=== PATIENT | female | born 1935 | race Caucasian/White ===

== ENCOUNTER 2017-03-10 01:32 | Emergency (ER) | payer MEDICARE, OTHER ==
--- NOTE | 2017-03-10 02:09 | EDM.PDOC ---
<Jeremy Remy - Last Filed: 03/10/17 07:17> ED HPI GENERAL MEDICAL PROBLEM - General Chief Complaint: Abdominal Pain Stated Complaint: VOMITING ABDOMINAL PAIN Time Seen by Provider: 03/10/17 02:00 - History of Present Illness INITIAL COMMENTS - FREE TEXT/NARRATIVE: 82-year-old female presents emergency room this morning with abdominal pain. This started around 9:00 this evening she developed some epigastric discomfort vomited one time and shortly before arrival this morning vomited again. Patient is concerned about ulcers as she's had quite a bit of stress lately. Couple weeks ago she had pain in the same area however this resolved on its own without treatment. She cannot recall any specific triggers. She feels a little bloated with this as well. Past medical history is significant for prior stroke she is treated for hypertension hyperlipidemia Abdomen Pain Score (Numeric/FACES): 6 - Related Data Allergies Allergy/AdvReac Type Severity Reaction Status Date / Time No Known Allergies Allergy Verified 09/22/14 11:45 Home Meds: Home Meds Ascorbic Acid [Vitamin C] 1,000 mg PO DAILY 03/10/17 [History] Aspirin [Ecotrin] 81 mg PO DAILY 03/10/17 [History] Bee Pollen 1,100 mg PO DAILY 03/10/17 [History] Bilberry 100 mg PO DAILY 03/10/17 [History] Biotin 2,000 mcg PO DAILY 03/10/17 [History] Calcium Carbonate/Vitamin D3 [Calcium Carb 500 MG] 1 tab PO DAILY 03/10/17 [ History] Cholecalciferol (Vitamin D3) [Vitamin D3] 2,000 mg PO DAILY 03/10/17 [History] Cinnamon Bark [Cinnamon] 1,000 mg PO DAILY 03/10/17 [History] Tiffany Fleetwood/Linoleic/Gamoleni [Evening Fleetwood 1,000 mg Sftg] 1,000 mg PO DAILY 03/10/17 [History] Folic Acid 1 mg PO DAILY 03/10/17 [History] Garlic 2,000 mg PO DAILY 03/10/17 [History] Gluc HCl/Csa/Sheryl Hy/Hyalur Ac [Glucosamine Chondroitin] 1 tab PO DAILY [History] Lisinopril 5 mg PO DAILY 03/10/17 [History] Multivitamin [Multivitamins] 1 tab PO DAILY 03/10/17 [History] Kingman-3 Fatty Acids [Kingman-3] 100 mg PO DAILY 03/10/17 [History] Pantoprazole Sodium [Protonix] 40 mg PO Q24H #30 tablet. 03/10/17 [Rx] Head Waters Jelly 300 mg PO DAILY 03/10/17 [History] Triamterene/Hydrochlorothiazid [Triamterene-HCTZ 37.5-25 MG] 1 cap PO DAILY 01/20 [History] Turmeric Root Extract [Turmeric] 500 mg PO DAILY 03/10/17 [History] Ubidecarenone [Co Q-10] 200 mg PO DAILY 03/10/17 [History] Vit A/Vit C/Vit E/Selenium Yst [Antioxidant Formula Tablet] 1 tab PO DAILY 03/10 [History] Vitamin B Complex [B Complex] 1 tab PO DAILY 03/10/17 [History] Vitamin E 400 unit PO DAILY 03/10/17 [History] atorvaSTATin [Lipitor] 20 mg PO DAILY 03/10/17 [History] Past Medical History HEENT History: Reports: Impaired Vision Cardiovascular History: Reports: High Cholesterol, Hypertension Musculoskeletal History: Reports: Back Pain, Chronic, Fracture, Neck Pain, Chronic Other Musculoskeletal History: foot Neurological History: Reports: CVA Social & Family History - Family History Family Medical History: Noncontributory - Tobacco Use Smoking Status *Q: Never Smoker - Caffeine Use Caffeine Use: Reports: Coffee - Recreational Drug Use Recreational Drug Use: No ED ROS GENERAL - Review of Systems Review Of Systems: See Below Constitutional: Reports: No Symptoms HEENT: Reports: No Symptoms Respiratory: Reports: No Symptoms Cardiovascular: Reports: No Symptoms GI/Abdominal: Reports: Abdominal Pain, Nausea, Vomiting. Denies: Black Stool, Bloody Stool, Constipation, Diarrhea : Reports: No Symptoms Neurological: Reports: No Symptoms ED EXAM, GI/ABD - Physical Exam Exam: See Below Exam Limited By: No Limitations General Appearance: Alert, No Apparent Distress Head: Atraumatic, Normocephalic Neck: Normal Inspection, Supple, Non-Tender, Full Range of Motion. No: Lymphadenopathy (L), Lymphadenopathy (R) Respiratory/Chest: No Respiratory Distress, Lungs Clear, Normal Breath Sounds Cardiovascular: Regular Rate, Rhythm, No Edema, No Murmur GI/Abdominal: Normal Bowel Sounds, Soft, Tenderness (Patient has significant epigastric discomfort to lesser degree she has some right and left upper quadrant discomfort no lower quadrant discomfort no rebound or guarding noted no rigidity) Back Exam: Normal Inspection. No: CVA Tenderness (L), CVA Tenderness (R) Extremities: Normal Inspection, No Pedal Edema Neurological: Alert, Oriented, Normal Cognition Course - Vital Signs Last Recorded V/S: Last Vital Signs Temp 97.1 F 03/10/17 01:37 Pulse 64 03/10/17 07:47 Resp 18 03/10/17 07:47 BP 170/74 H 03/10/17 07:47 Pulse Ox 94 L 03/10/17 07:47 - Orders/Labs/Meds Orders: Active Orders 24 hr Category Date Time Status Lactated Ringers [Ringers, Lactated] 1,000 ml Med 03/10/17 02:15 Active IV ASDIRECTED Sodium Chloride 0.9% [Normal Saline] 1,000 ml Med 03/10/17 11:00 Active IV ASDIRECTED Sodium Chloride 0.9% [Saline Flush] Med 03/10/17 08:16 Active 10 ml FLUSH ONETIME PRN Medication Orders Lactated Ringer's (Ringers, Lactated) 1,000 mls @ 125 mls/hr IV ASDIRECTED LAURENCE Last Admin: 03/10/17 02:19 Dose: 125 mls/hr Sodium Chloride (Normal Saline) 1,000 mls @ 150 mls/hr IV ASDIRECTED LAURENCE Last Admin: 03/10/17 11:07 Dose: 150 mls/hr Sodium Chloride (Saline Flush) 10 ml FLUSH ONETIME PRN PRN Reason: IV FLUSH Last Admin: 03/10/17 09:24 Dose: 10 ml Labs: Laboratory Tests 03/10/17 03/10/17 03/10/17 Range/Units 01:52 01:52 01:52 WBC 6.78 (3.98-10.04) K/mm3 RBC 4.77 (3.98-5.22) M/mm3 Hgb 14.2 (11.2-15.7) gm/L Hct 40.8 (34.1-44.9) % MCV 85.5 (79.4-94.8) fl MCH 29.8 (25.6-32.2) pg MCHC 34.8 (32.2-35.5) g/dl RDW Std Deviation 42.4 (36.4-46.3) fL Plt Count 212 (182-369) K/mm3 MPV 9.7 (9.4-12.3) fl Neutrophils % (Manual) 65 H (40-60) % Band Neutrophils % 0 (0-10) % Lymphocytes % (Manual) 32 (20-40) % Atypical Lymphs % 0 % Monocytes % (Manual) 3 (2-10) % Eosinophils % (Manual) 0 L (0.7-5.8) % Basophils % (Manual) 0 L (0.1-1.2) Platelet Estimate Adequate Plt Morphology Comment Normal RBC Morph Comment Normal Sodium 137 (136-145) mEq/L Potassium 3.6 (3.5-5.1) mEq/L Chloride 102 (98-107) mEq/L Carbon Dioxide 23 (21-32) mEq/L Anion Gap 15.6 H (5-15) BUN 16 (7-18) mg/dL Creatinine 1.0 (0.55-1.02) mg/dL Est Cr Clr Drug Dosing 36.16 mL/min Estimated GFR (MDRD) 53 (>60) mL/min BUN/Creatinine Ratio 16.0 (14-18) Glucose 149 H (83-115) mg/dL Calcium 9.5 (8.5-10.1) mg/dL Total Bilirubin 1.7 H (0.2-1.0) mg/dL Direct Bilirubin (0.0-0.2) mg/dl GGT 831 H (5-55) U/L AST 82 H (15-37) U/L ALT 158 H (14-59) U/L Alkaline Phosphatase 345 H (46-116) U/L Total Protein 7.1 (6.4-8.2) g/dl Albumin 4.1 (3.4-5.0) g/dl Globulin 3.0 gm/dL Albumin/Globulin Ratio 1.4 (1-2) Lipase 241 (73-393) U/L Urine Color (Yellow) Urine Appearance (Clear) Urine pH (5.0-8.0) Ur Specific Chester (1.005-1.030) Urine Protein (Negative) Urine Glucose (UA) (Negative) Urine Ketones (Negative) Urine Occult Blood (Negative) Urine Nitrite (Negative) Urine Bilirubin (Negative) Urine Urobilinogen (0.2-1.0) Ur Leukocyte Esterase (Negative) Urine RBC (0-5) /hpf Urine WBC (0-5) /hpf Ur Epithelial Cells (0-5) /hpf Urine Bacteria (FEW) /hpf Urine Mucus (FEW) /hpf 03/10/17 03/10/17 Range/Units 01:53 03:22 WBC (3.98-10.04) K/mm3 RBC (3.98-5.22) M/mm3 Hgb (11.2-15.7) gm/L Hct (34.1-44.9) % MCV (79.4-94.8) fl MCH (25.6-32.2) pg MCHC (32.2-35.5) g/dl RDW Std Deviation (36.4-46.3) fL Plt Count (182-369) K/mm3 MPV (9.4-12.3) fl Neutrophils % (Manual) (40-60) % Band Neutrophils % (0-10) % Lymphocytes % (Manual) (20-40) % Atypical Lymphs % % Monocytes % (Manual) (2-10) % Eosinophils % (Manual) (0.7-5.8) % Basophils % (Manual) (0.1-1.2) Platelet Estimate Plt Morphology Comment RBC Morph Comment Sodium (136-145) mEq/L Potassium (3.5-5.1) mEq/L Chloride (98-107) mEq/L Carbon Dioxide (21-32) mEq/L Anion Gap (5-15) BUN (7-18) mg/dL Creatinine (0.55-1.02) mg/dL Est Cr Clr Drug Dosing mL/min Estimated GFR (MDRD) (>60) mL/min BUN/Creatinine Ratio (14-18) Glucose (83-115) mg/dL Calcium (8.5-10.1) mg/dL Total Bilirubin (0.2-1.0) mg/dL Direct Bilirubin 1.00 H (0.0-0.2) mg/dl GGT (5-55) U/L AST (15-37) U/L ALT (14-59) U/L Alkaline Phosphatase (46-116) U/L Total Protein (6.4-8.2) g/dl Albumin (3.4-5.0) g/dl Globulin gm/dL Albumin/Globulin Ratio (1-2) Lipase (73-393) U/L Urine Color Yellow (Yellow) Urine Appearance Clear (Clear) Urine pH 7.5 (5.0-8.0) Ur Specific Chester 1.020 (1.005-1.030) Urine Protein Trace H (Negative) Urine Glucose (UA) Negative (Negative) Urine Ketones 1+ H (Negative) Urine Occult Blood Negative (Negative) Urine Nitrite Negative (Negative) Urine Bilirubin Negative (Negative) Urine Urobilinogen 2.0 H (0.2-1.0) Ur Leukocyte Esterase Trace H (Negative) Urine RBC 0-5 (0-5) /hpf Urine WBC 0-5 (0-5) /hpf Ur Epithelial Cells 0-5 (0-5) /hpf Urine Bacteria Few (FEW) /hpf Urine Mucus Not seen (FEW) /hpf Meds: Medications Generic Name Dose Route Start Last Admin Trade Name Darryl PRN Reason Stop Dose Admin Lactated Ringer's 1,000 mls @ 125 mls/hr 03/10/17 02:15 03/10/17 02:19 Ringers, Lactated IV 125 mls/hr ASDIRECTED LAURENCE Administration Sodium Chloride 1,000 mls @ 150 mls/hr 03/10/17 11:00 03/10/17 11:07 Normal Saline IV 150 mls/hr ASDIRECTED LAURENCE Administration Sodium Chloride 10 ml 03/10/17 08:16 03/10/17 09:24 Saline Flush FLUSH 10 ml ONETIME PRN Administration IV FLUSH Discontinued Medications Generic Name Dose Route Start Last Admin Trade Name Darryl PRN Reason Stop Dose Admin Al Hydroxide/Mg Hydroxide 30 0 ml 03/10/17 02:10 03/10/17 02:43 ml/ Lidocaine HCl 15 ml PO 03/10/17 02:11 45 ml ONETIME ONE Administration Diatrizoate Meglum/Diatrizoate Sod 120 ml 03/10/17 08:16 03/10/17 09:23 Gastrografin 37% PO 03/10/17 08:17 45 ml ONETIME ONE Administration Hydromorphone HCl 0.5 mg 03/10/17 05:26 03/10/17 05:38 Dilaudid IVPUSH 03/10/17 05:27 0.5 mg ONETIME ONE Administration Hydromorphone HCl 0.25 mg 03/10/17 10:48 03/10/17 11:07 Dilaudid IVPUSH 03/10/17 10:49 0.25 mg ONETIME ONE Administration Iopamidol 100 ml 03/10/17 08:16 03/10/17 09:24 Isovue-300 (61%) IVPUSH 03/10/17 08:17 100 ml ONETIME ONE Administration Ondansetron HCl 4 mg 03/10/17 02:10 03/10/17 02:15 Zofran IVPUSH 03/10/17 02:11 4 mg ONETIME ONE Administration Ondansetron HCl 4 mg 03/10/17 07:40 03/10/17 07:45 Zofran IVPUSH 03/10/17 07:41 4 mg ONETIME ONE Administration Pantoprazole Sodium 40 mg 03/10/17 05:26 03/10/17 05:40 Protonix Iv IVPUSH 03/10/17 05:27 40 mg ONETIME ONE Administration Sucralfate 1 gm 03/10/17 03:37 03/10/17 03:40 Carafate PO 03/10/17 03:38 1 gm ONETIME ONE Administration - Re-Assessments/Exams Free Text/Narrative Re-Assessment/Exam: 03/10/17 03:45 Patient received Zofran this helped significantly with her nausea and vomiting this was followed up with GI cocktail with some improvement not great we'll try Carafate. 03/10/17 05:15 Direct bilirubins elevated at 1.0 GGT is elevated as well patient will get a gallbladder ultrasound this morning. 03/10/17 07:22 Ultrasound-guided results back. She's got some intrahepatic and extrahepatic biliary ductal dilation with sludge within the gallbladder no gallstones appreciated no gallbladder wall thickening she may have some underlying fatty liver the duct. Pancreas cannot be well visualized because of its excessive bowel gas her common duct is dilated at 1.4 cm etiology of this cannot be identified. Case discussed with Dr. Jones who recommends CT scanning. Discussed the situation with the patient and her will give her a little more Dilaudid. She received 0.25 mg initially and now her pain is coming back she will receive another 0.25 mg. At this point it is change of shift case discussed with Dr. Villa further evaluation and disposition per Dr. Villa. Departure - Departure Disposition: Home, Self-Care 01 Clinical Impression: Upper abdominal pain, Biliary obstruction Pancreatic cancer Qualifiers: Pancreatic malignancy location: unspecified Qualified Code(s): C25.9 - Malignant neoplasm of pancreas, unspecified - Discharge Information Prescriptions: Pantoprazole Sodium [Protonix] 40 mg PO Q24H #30 tablet. Referrals: Samara Ga MD [Primary Care Provider] - Forms: ED Department Discharge - My Orders Last 24 Hours: My Active Orders 03/10/17 08:16 Sodium Chloride 0.9% [Saline Flush] 10 ml FLUSH ONETIME PRN 03/10/17 11:00 Sodium Chloride 0.9% [Normal Saline] 1,000 ml IV ASDIRECTED - Assessment/Plan Last 24 Hours: My Active Orders 03/10/17 08:16 Sodium Chloride 0.9% [Saline Flush] 10 ml FLUSH ONETIME PRN 03/10/17 11:00 Sodium Chloride 0.9% [Normal Saline] 1,000 ml IV ASDIRECTED <[place] - Last Filed: 03/10/17 11:32> Course - Re-Assessments/Exams Free Text/Narrative Re-Assessment/Exam: 03/10/17 11:10. Have accepted care from Dr. Remy at change of shift. I agree with his history and exam as documented. At that time he did discuss patient's symptoms and findings with Dr. Jaime Jones, general surgeon adult education teacher. Ultrasound of gallbladder did show sludge. Her liver enzymes were elevated and bilirubin at 1.7. Dr. Jia Jones did recommend doing abdominal CT. Oral contrast was given and then CT subsequently obtained. Radiology report is back that unfortunately shows a pancreatic tumor 1.[address] has been reviewed with Dr. Jia Jones, our General Surgeon adult education teacher. There is biliary obstruction and also some pancreatic duct obstruction. Therefore we are transferring her to [facility] for ERCP, consider brushings for diagnostic purposes and stent placement for symptomatic relief. I have discussed this with Dr. Zapata [facility] who does feel this is reasonable and also information has been relayed to Dr. Pinon, Hospitalist adult education teacher who does accept patient in transfer. She was doing better after IV Dilaudid but now the pain is coming back. Further pain medication will be given. She will be transferred by ground ambulance. 03/10/17 11:31 Departure - Departure Time of Disposition: 11:15
[2017-03-10] MEDS ORDERED: Ondansetron 4 MG/2 ML SDV IVPUSH ONE ×2 (02:10→07:40)
[2017-03-10] MEDS ORDERED: Alum Hydrox/Mag Hydrox/Simeth 30 ML, Lidocaine 2% 15 ML PO ONE ×2 (02:10)
[2017-03-10] MEDS ORDERED: Lactated Ringers 1,000 ML IV SCH (02:15)
[2017-03-10] MEDS ORDERED: Sucralfate Suspension 1 GM/10 ML Cup PO ONE (03:37)
[2017-03-10] MEDS ORDERED: Pantoprazole 40 MG Vial IVPUSH ONE (05:26)
[2017-03-10] MEDS ORDERED: HYDROmorphone 0.5 MG/0.5 ML Syringe IVPUSH ONE ×2 (05:26→10:48)
--- NOTE | 2017-03-10 07:02 | US ---
Limited abdominal ultrasound: Multiple real-time images were obtained of the upper right abdomen. Comparison: No previous ultrasound exam. Technologist's note: Somewhat limited due to midline gas Liver is somewhat coarse in its echo pattern. No focal abnormality is appreciated within the liver. Mild intrahepatic biliary duct dilatation is seen. Gallbladder shows mild amount of sludge. No gallbladder wall thickening is seen. Common bile duct mildly dilated at 1.4 cm. Etiology is not seen for this biliary duct dilatation on this exam. Right kidney shows no hydronephrosis or mass and has a length of 10.2 cm. Pancreas is obscured from bowel gas. Impression: 1. Intrahepatic and extrahepatic biliary duct dilatation. 2. Sludge within the gallbladder. No gallstones are appreciated. No gallbladder wall thickening is seen. If patient is a candidate, MRCP could be obtained to further evaluate the biliary duct dilatation. 3. Probable fatty infiltration of the liver. 4. Obscured pancreas due to bowel gas. Diagnostic code #3
--- NOTE | 2017-03-10 08:02 | CR ---
Abdomen: Supine and upright views of the abdomen were obtained. Comparison: No previous study. Gas noted throughout colon and small bowel. No bowel dilatation is seen. No free air is identified. Calcifications noted within the pelvis are compatible with phleboliths. Minimal degenerative change noted within the spine. Impression: 1. Mild increased gas within colon and small bowel with no bowel dilatation. Findings could represent increased swallowed gas versus ileus. 2. Other incidental findings. Diagnostic code #2
[2017-03-10] MEDS ORDERED: Sodium Chloride 0.9% 10 ML Syringe FLUSH PRN (08:16)
[2017-03-10] MEDS ORDERED: Diatrizoate Meglumine/Diatrizoate Sodium 37% 120 ML Bottle PO ONE (08:16)
[2017-03-10] MEDS ORDERED: Iopamidol 612 MG/ML 100 ML Bottle IVPUSH ONE (08:16)
--- NOTE | 2017-03-10 09:56 | CT ---
CT abdomen and pelvis Technique: Multiple axial sections were obtained from above the dome of the diaphragm inferiorly through the pubic symphysis. Intravenous and oral contrast was utilized. Comparison: Previous right upper quadrant abdominal ultrasound of 03/10/17. Findings: Gallbladder is somewhat dilated. There are small layering calcified gallstones within the gallbladder. These are not appreciated even in retrospect on prior ultrasound which presumably are hidden due from the sludge that was seen on ultrasound exam. Intrahepatic and extrahepatic biliary duct dilatation is seen. Small low-density lesion noted within the head of the pancreas measuring proximally 1.5 cm in size which could represent small pancreatic tumor. Slightly prominent main pancreatic duct is seen. No additional abnormality is appreciated within the pancreas. Adrenal glands show no nodule. Low-density tubular abnormality is seen off the superior left kidney extending inferiorly into the pelvis. This has a thickness of 3.5 cm and presumably represents a dilated upper pole collecting system with duplicated dilated ureter which which likely is dilated due to stenosis distally with other portions of this ureter showing no dilatation. Kidneys are otherwise unremarkable. Aorta shows atherosclerotic change without aneurysmal dilatation. No retroperitoneal adenopathy or mesenteric abnormalities are seen. No pelvic mass or adenopathy is seen. Increased stool is noted within the right colon. Bone window settings were reviewed which shows scattered degenerative change within the spine. Impression: 1. 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 Distal ureter not well seen which presumably represents stenosis within the distal aspect of the dilated portion of the ureter causing the proximal dilatation. Second ureter supplying the rest of the left kidney appears unremarkable. 2. Dilated gallbladder. Small calcified gallstones are seen within the gallbladder. These small gallstones are not seen even in retrospect on prior ultrasound presumably being hidden from sludge on prior study. Intrahepatic and extrahepatic biliary duct dilatation is seen. 3. Small low-density lesion within the head of the pancreas possibly due to small pancreatic tumor measuring 1.5 cm. Diagnostic code #9
[2017-03-10] MEDS ORDERED: Sodium Chloride 0.9% 1,000 ML IV SCH (11:00)
[2017-03-10 15:20] VITALS: BP 183/79
== END 2017-03-10 12:10 | disposition home or self-care (01) ==
LOC: JD.ED 01:32
DX: K83.1 Obstruction of bile duct (principal); C25.9 Malignant neoplasm of pancreas, unspecified; I10 Essential (primary) hypertension; E78.00 Pure hypercholesterolemia, unspecified; Z86.73 Personal history of transient ischemic attack (TIA), and cerebral infarction without residual deficits; Z79.899 Other long term (current) drug therapy; Z79.82 Long term (current) use of aspirin
CPT/HCPCS: 36415; 74020; 74177; 76705; 80053; 81001; 82248; 82977; 83690; 85025; 96361; 96374; 96375; 96376; 99285; A9270; C9113; J1170; J2405; J7040; J7050; J7120; Q9963; Q9967

== ENCOUNTER 2017-04-19 14:06 | Emergency (ER) | payer MEDICARE, OTHER ==
[2017-04-19] MEDS ORDERED: Sodium Chloride 0.9% 10 ML Syringe FLUSH PRN ×2 (15:18→15:51)
[2017-04-19] MEDS ORDERED: Diatrizoate Meglumine/Diatrizoate Sodium 37% 120 ML Bottle PO ONE (15:51)
[2017-04-19] MEDS ORDERED: Iopamidol 612 MG/ML 100 ML Bottle IVPUSH ONE (15:51)
--- NOTE | 2017-04-19 16:19 | CR ---
Chest: Portable view of the chest was obtained. Comparison: No prior chest x-ray. Heart size is slightly enlarged. Tortuous thoracic aorta is seen. Lungs are clear. Mild scoliosis is noted within the spine with degenerative spurring. Previous left shoulder surgery is seen. Impression: 1. Findings as described above. Nothing acute is identified. Diagnostic code #2
--- NOTE | 2017-04-19 17:00 | CT ---
CT abdomen and pelvis Technique: Multiple axial sections were obtained from above the dome of the diaphragm inferiorly through the pubic symphysis. Intravenous and oral contrast was utilized. Delayed images were obtained through the bladder. Comparison: Previous CT abdomen and pelvis exam of 03/10/17. Findings: Small portion of the visualized lung bases shows nothing acute. Small hiatal hernia is seen. Mild intrahepatic and extrahepatic biliary duct dilatation is seen. Intrahepatic air is also seen. No additional abnormality is appreciated within the liver. Spleen appears within normal limits. Stent is noted within the common bile duct extending into the duodenum. Pancreas is atrophic with mildly dilated pancreatic duct. Low-density mass is identified within the head of the pancreas measuring approximately 1.1 cm in size. When along for differences in measurement technique this is felt to be stable from previous exam. Adrenal glands show no nodule. Kidneys show symmetric contrast enhancement. 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 This finding is stable from previous exam. Lower pole left ureter shows no dilatation which is also stable from prior exam. Delayed images shows contrast excretion into the lower pole duplicated ureter as well as distal right ureter. Contrast is seen within the bladder. Aorta shows atherosclerotic change without aneurysmal dilatation. No retroperitoneal adenopathy or mesenteric abnormalities are seen. Appendix is felt to be present and appears normal in size. Diverticuli seen within the sigmoid colon. No pelvic mass or adenopathy is seen. No bowel dilatation is seen. Bone window settings were reviewed which shows scattered degenerative change within the spine. Impression: 1. 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 This appears stable from prior CT exam. Ureter supplying the rest of the left kidney shows no dilatation with contrast seen within the distal left ureter into the bladder. Contrast also noted within the distal right ureter into the bladder. 2. Stable low-density mass within the head of the pancreas. 3. Intrahepatic air is seen as well as intrahepatic and extrahepatic biliary duct dilatation. Stent is identified within the main common bile duct into the duodenum. 4. Other incidental findings as noted above. Diagnostic code #9
--- NOTE | 2017-04-19 18:26 | EDM.PDOC ---
ED HPI GENERAL MEDICAL PROBLEM - General Chief Complaint: Abdominal Pain Stated Complaint: ABD PAIN Time Seen by Provider: 04/19/17 15:35 Source of Information: Reports: Patient, Old Records (recent ER visit) History Limitations: Reports: No Limitations - History of Present Illness INITIAL COMMENTS - FREE TEXT/NARRATIVE: 82-year-old female presents for evaluation and treatment of right upper quadrant and epigastric abdominal pain. Patient reports that the abdominal pain came on last night. Describes the pain as a constant pain and rates it as a 5 or 6 out of 10. She reports associated symptoms of chills this morning, decreased appetite, bloating and fatigue. She states that she ate some corn on the cob and soup last night. She reports that she developed "gas pain". She states that she was belching more than normally. This morning she had some activia yogurt. She states that she continued to pass gas, belch and have abdominal pain. She reports that she had a small bowel movement this morning. She is currently reporting right upper quadrant/epigastric pain that radiates into the back. She did not take any medications prior to arrival in the ER. She denies any nausea, vomiting, fevers, chest pain, shortness of breath or diarrhea. Patient does report feeling pruritus in the scalp and back. Patient was seen in our ER and March. She was diagnosed with pancreatic cancer. She was sent [place] for further management and care. States that she had a stent placed to pancreatic duct in March [facility]. She has subsequently been seen oncology at [facility]. They did contact her oncologist today who instructed her to be seen in the ER. They're concerned for a clogged stent and for stent placement. Upper Abdominal Pain Score (Numeric/FACES): 7 - Related Data Allergies Allergy/AdvReac Type Severity Reaction Status Date / Time No Known Allergies Allergy Verified 04/19/17 14:57 Home Meds: Home Meds Ascorbic Acid [Vitamin C] 1,000 mg PO DAILY 03/10/17 [History] Aspirin [Ecotrin] 81 mg PO DAILY 03/10/17 [History] Bee Pollen 1,100 mg PO DAILY 03/10/17 [History] Bilberry 100 mg PO DAILY 03/10/17 [History] Biotin 2,000 mcg PO DAILY 03/10/17 [History] Calcium Carbonate/Vitamin D3 [Calcium Carb 500 MG] 1 tab PO DAILY 03/10/17 [ History] Cholecalciferol (Vitamin D3) [Vitamin D3] 2,000 mg PO DAILY 03/10/17 [History] Cinnamon Bark [Cinnamon] 1,000 mg PO DAILY 03/10/17 [History] Tiffany [place]/Linoleic/Gamoleni [Evening [place] 1,000 mg Sftg] 1,000 mg PO DAILY 03/10/17 [History] Folic Acid 1 mg PO DAILY 03/10/17 [History] Garlic 2,000 mg PO DAILY 03/10/17 [History] Gluc HCl/Csa/Sheryl Hy/Hyalur Ac [Glucosamine Chondroitin] 1 tab PO DAILY [History] Lisinopril 5 mg PO DAILY 03/10/17 [History] Multivitamin [Multivitamins] 1 tab PO DAILY 03/10/17 [History] Talpa-3 Fatty Acids [Talpa-3] 100 mg PO DAILY 03/10/17 [History] Pantoprazole Sodium [Protonix] 40 mg PO Q24H #30 tablet. 03/10/17 [Rx] [place] Jelly 300 mg PO DAILY 03/10/17 [History] Triamterene/Hydrochlorothiazid [Triamterene-HCTZ 37.5-25 MG] 1 cap PO DAILY 01/20 [History] Turmeric/Turmeric Root Extract [Turmeric] 500 mg PO DAILY 03/10/17 [History] Ubidecarenone [Co Q-10] 200 mg PO DAILY 03/10/17 [History] Vit A/Vit C/Vit E/Selenium Yst [Antioxidant Formula Tablet] 1 tab PO DAILY 03/10 [History] Vitamin B Complex [B Complex] 1 tab PO DAILY 03/10/17 [History] Vitamin E 400 unit PO DAILY 03/10/17 [History] atorvaSTATin [Lipitor] 20 mg PO DAILY 03/10/17 [History] Past Medical History HEENT History: Reports: Impaired Vision Cardiovascular History: Reports: High Cholesterol, Hypertension Musculoskeletal History: Reports: Back Pain, Chronic, Fracture, Neck Pain, Chronic Other Musculoskeletal History: foot Neurological History: Reports: CVA Oncologic (Cancer) History: Reports: Pancreatic Social & Family History - Family History Family Medical History: Noncontributory - Tobacco Use Smoking Status *Q: Never Smoker - Caffeine Use Caffeine Use: Reports: Coffee - Recreational Drug Use Recreational Drug Use: No ED ROS GENERAL - Review of Systems Review Of Systems: See Below Constitutional: Reports: Chills, Decreased Appetite. Denies: Fever Respiratory: Denies: Shortness of Breath Cardiovascular: Denies: Chest Pain GI/Abdominal: Reports: Abdominal Pain, Decreased Appetite Skin: Reports: Pruritis (scalp and back) ED EXAM, GI/ABD - Physical Exam Exam: See Below Exam Limited By: No Limitations General Appearance: Alert, WD/WN, Mild Distress Eyes: Bilateral: Normal Appearance (icterus) Throat/Mouth: Normal Inspection Respiratory/Chest: No Respiratory Distress, Lungs Clear, Normal Breath Sounds Cardiovascular: Normal Peripheral Pulses, Regular Rate, Rhythm, No Murmur GI/Abdominal Exam: Normal Bowel Sounds, Soft, Tender (RUQ and epigastric) Neurological: Alert, Oriented, Normal Cognition Psychiatric: Normal Affect, Normal Mood Skin Exam: Warm, Dry EKG INTERPRETATION EKG Date: 04/19/17 Time: 17:25 Rhythm: NSR Rate (Beats/Min): 74 [place]: Normal P-Wave: Present QRS: Normal ST-T: Normal QT: Normal EKG Interpretation Comments: NSR at 74 bpm. No acute changes. Reviewed by myself and Dr. Pitts. Course - Vital Signs Last Recorded V/S: Last Vital Signs Temp 37.1 C 04/19/17 18:48 Pulse 71 04/19/17 18:48 Resp 18 04/19/17 18:48 BP 135/67 04/19/17 18:48 Pulse Ox 96 04/19/17 18:48 - Orders/Labs/Meds Orders: Active Orders 24 hr Category Date Time Status EKG Documentation Completion [RC] STAT Care 04/19/17 15:16 Active Peripheral IV Care [RC] . DIRECTED Care 04/19/17 15:18 Active CULTURE BLOOD [BC] Stat Lab 04/19/17 17:55 Received CULTURE BLOOD [BC] Stat Lab 04/19/17 18:01 Received Sodium Chloride 0.9% [Saline Flush] Med 04/19/17 15:18 Active 10 ml FLUSH ASDIRECTED PRN Sodium Chloride 0.9% [Saline Flush] Med 04/19/17 15:51 Active 10 ml FLUSH ONETIME PRN Blood Culture x2 Reflex Set [OM.PC] Stat Oth 04/19/17 17:18 Ordered Peripheral IV Insertion Adult [OM.PC] Routine Oth 04/19/17 15:18 Ordered Medication Orders Sodium Chloride (Saline Flush) 10 ml FLUSH ASDIRECTED PRN PRN Reason: Keep Vein Open Last Admin: 04/19/17 17:35 Dose: 10 ml Sodium Chloride (Saline Flush) 10 ml FLUSH ONETIME PRN PRN Reason: IV FLUSH Last Admin: 04/19/17 16:31 Dose: 10 ml Labs: Laboratory Tests 04/19/17 04/19/17 04/19/17 Range/Units 14:55 14:55 14:55 WBC 10.55 H (3.98-10.04) K/mm3 RBC 5.01 (3.98-5.22) M/mm3 Hgb 14.6 (11.2-15.7) gm/L Hct 42.3 (34.1-44.9) % MCV 84.4 (79.4-94.8) fl MCH 29.1 (25.6-32.2) pg MCHC 34.5 (32.2-35.5) g/dl RDW Std Deviation 40.9 (36.4-46.3) fL Plt Count 240 (182-369) K/mm3 MPV 9.4 (9.4-12.3) fl Neutrophils % (Manual) 70 H (40-60) % Band Neutrophils % 0 (0-10) % Lymphocytes % (Manual) 20 (20-40) % Atypical Lymphs % 0 % Monocytes % (Manual) 5 (2-10) % Eosinophils % (Manual) 5 (0.7-5.8) % Basophils % (Manual) 0 L (0.1-1.2) Hypersegmented Neuts Few Platelet Estimate Adequate Plt Morphology Comment Normal RBC Morph Comment Normal Sodium 135 L (136-145) mEq/L Potassium 3.8 (3.5-5.1) mEq/L Chloride 98 (98-107) mEq/L Carbon Dioxide 26 (21-32) mEq/L Anion Gap 14.8 (5-15) BUN 19 H (7-18) mg/dL Creatinine 1.0 (0.55-1.02) mg/dL Est Cr Clr Drug Dosing 33.12 mL/min Estimated GFR (MDRD) 53 (>60) mL/min BUN/Creatinine Ratio 19.0 H (14-18) Glucose 118 H (83-115) mg/dL Lactic Acid (0.4-2.0) mmol/L Calcium 10.3 H (8.5-10.1) mg/dL Total Bilirubin 3.9 H (0.2-1.0) mg/dL Direct Bilirubin 3.10 H (0.0-0.2) mg/dl GGT 2104 H (5-55) U/L AST 299 H (15-37) U/L ALT 430 H (14-59) U/L Alkaline Phosphatase 911 H (46-116) U/L Troponin I < 0.017 (0.00-0.056) ng/mL C-Reactive Protein 1.8 H* (<1.0) mg/dL Total Protein 7.4 (6.4-8.2) g/dl Albumin 3.9 (3.4-5.0) g/dl Globulin 3.5 gm/dL Albumin/Globulin Ratio 1.1 (1-2) Lipase 179 (73-393) U/L // Range/Units 17:55 WBC (3.98-10.04) K/mm3 RBC (3.98-5.22) M/mm3 Hgb (11.2-15.7) gm/L Hct (34.1-44.9) % MCV (79.4-94.8) fl MCH (25.6-32.2) pg MCHC (32.2-35.5) g/dl RDW Std Deviation (36.4-46.3) fL Plt Count (182-369) K/mm3 MPV (9.4-12.3) fl Neutrophils % (Manual) (40-60) % Band Neutrophils % (0-10) % Lymphocytes % (Manual) (20-40) % Atypical Lymphs % % Monocytes % (Manual) (2-10) % Eosinophils % (Manual) (0.7-5.8) % Basophils % (Manual) (0.1-1.2) Hypersegmented Neuts Platelet Estimate Plt Morphology Comment RBC Morph Comment Sodium (136-145) mEq/L Potassium (3.5-5.1) mEq/L Chloride (98-107) mEq/L Carbon Dioxide (21-32) mEq/L Anion Gap (5-15) BUN (7-18) mg/dL Creatinine (0.55-1.02) mg/dL Est Cr Clr Drug Dosing mL/min Estimated GFR (MDRD) (>60) mL/min BUN/Creatinine Ratio (14-18) Glucose (83-115) mg/dL Lactic Acid 0.9 (0.4-2.0) mmol/L Calcium (8.5-10.1) mg/dL Total Bilirubin (0.2-1.0) mg/dL Direct Bilirubin (0.0-0.2) mg/dl GGT (5-55) U/L AST (15-37) U/L ALT (14-59) U/L Alkaline Phosphatase (46-116) U/L Troponin I (0.00-0.056) ng/mL C-Reactive Protein (<1.0) mg/dL Total Protein (6.4-8.2) g/dl Albumin (3.4-5.0) g/dl Globulin gm/dL Albumin/Globulin Ratio (1-2) Lipase (73-393) U/L Meds: Medications Generic Name Dose Route Start Last Admin Trade Name Freq PRN Reason Stop Dose Admin Sodium Chloride 10 ml 04/19/17 15:18 04/19/17 17:35 Saline Flush FLUSH 10 ml ASDIRECTED PRN Administration Keep Vein Open Sodium Chloride 10 ml 04/19/17 15:51 04/19/17 16:31 Saline Flush FLUSH 10 ml ONETIME PRN Administration IV FLUSH Discontinued Medications Generic Name Dose Route Start Last Admin Trade Name Freq PRN Reason Stop Dose Admin Diatrizoate Meglum/Diatrizoate Sod 90 ml 04/19/17 15:51 04/19/17 16:31 Gastrografin 37% PO 04/19/17 15:52 90 ml ONETIME ONE Administration Iopamidol 100 ml 04/19/17 15:51 04/19/17 16:31 Isovue-300 (61%) IVPUSH 04/19/17 15:52 100 ml ONETIME ONE Administration - Radiology Interpretation Free Text/Narrative:: CT of the abdomen and pelvis with contrast impression per Dr. Yarbrough: 1. 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 This appears stable from prior CT exam. Uterus supplying the rest of the left kidney shows no dilation with contrast seen within the distal left ureter into the bladder. Contrast also noted within the distal right ureter into the bladder. 2. Stable low-density mass within the head of the pancreas. 3. Intrahepatic air is seen as well as intrahepatic and extrahepatic biliary duct dilation. Stent is identified within the main common bile duct into the duodenum. 4. Other incidental findings. chest [address] Yarbrough: heart is slightly enlarged. no acute findings. - Re-Assessments/Exams Free Text/Narrative Re-Assessment/Exam: 04/19/17 15:29 I spoke with the patient's GI specialist at [facility], Dr. Dunn, he asked we obtain labs. And contact him with an update. 04/19/17 19:23 Patient's lab studies have returned include the following. White blood cell count mildly elevated at 10.55, hemoglobin 14.6 and platelets are 240. Sodium is 135, potassium is 3.8 chloride is 98. Total bilirubin is elevated at 3.9, direct bilirubin is 2.1, AST is 299, ALT is 4:30, alkaline phosphatase is 911 and GGT elevated at 2104. Troponin is within normal limits at less than 0.017. Lipase is within normal limits at 179. I discussed the findings with the patient's and her . She is seen a specialist at [facility]. I feel this would be the best place for her. She previously had a stent placed in [place] but is now seen specialists in [place]. Patient also [place] if at all possible. I discussed the case with Dr. Dunn and Dr. Velazquez, GI specialist at [facility]. They agree to accept the patient. The patient will go by fixed wing to [facility] in [place]. She will go to the [facility] via direct admission. Plan were full be for her to have an ERCP and redo the stenting. at this time the patient is pain free. 04/19/17 19:29 Spoke with the patient's daughter, Gunjan, with an update. Gunjan is at Departure - Departure Time of Disposition: 19:31 Disposition: DC/Tfer to Acute Hospital 02 Condition: Serious Clinical Impression: Obstruction of pancreatic stent Pancreatic cancer Qualifiers: Pancreatic malignancy location: unspecified Qualified Code(s): C25.9 - Malignant neoplasm of pancreas, unspecified - Discharge Information Forms: ED Department Discharge Additional Instructions: Patient will fly to [facility] for further management and care. Dr. Goodman and Dr. Velazquez accepting. - My Orders Last 24 Hours: My Active Orders 04/19/17 15:16 EKG Documentation Completion [RC] STAT 04/19/17 15:18 Peripheral IV Care [RC] . DIRECTED Sodium Chloride 0.9% [Saline Flush] 10 ml FLUSH ASDIRECTED PRN Peripheral IV Insertion Adult [OM.PC] Routine 04/19/17 15:51 Sodium Chloride 0.9% [Saline Flush] 10 ml FLUSH ONETIME PRN 04/19/17 17:18 Blood Culture x2 Reflex Set [OM.PC] Stat 04/19/17 17:55 CULTURE BLOOD [BC] Stat 04/19/17 18:01 CULTURE BLOOD [BC] Stat - Assessment/Plan Last 24 Hours: My Active Orders 04/19/17 15:16 EKG Documentation Completion [RC] STAT 04/19/17 15:18 Peripheral IV Care [RC] . DIRECTED Sodium Chloride 0.9% [Saline Flush] 10 ml FLUSH ASDIRECTED PRN Peripheral IV Insertion Adult [OM.PC] Routine 04/19/17 15:51 Sodium Chloride 0.9% [Saline Flush] 10 ml FLUSH ONETIME PRN 04/19/17 17:18 Blood Culture x2 Reflex Set [OM.PC] Stat 04/19/17 17:55 CULTURE BLOOD [BC] Stat 04/19/17 18:01 CULTURE BLOOD [BC] Stat
[2017-04-19 18:49] VITALS: BP 135/67
== END 2017-04-19 19:45 ==
LOC: JD.ED 14:06
DX: T85.590A Other mechanical complication of bile duct prosthesis, initial encounter (principal); C25.9 Malignant neoplasm of pancreas, unspecified; I10 Essential (primary) hypertension; E78.00 Pure hypercholesterolemia, unspecified; Z79.82 Long term (current) use of aspirin; Z79.899 Other long term (current) drug therapy; Z86.73 Personal history of transient ischemic attack (TIA), and cerebral infarction without residual deficits
CPT/HCPCS: 36415; 71010; 74177; 80053; 82248; 82977; 83605; 83690; 84484; 85025; 86140; 87040; 93005; 99285; J7050; Q9963; Q9967

== ENCOUNTER 2017-10-01 18:33 | Emergency (ER) | payer MEDICARE, OTHER ==
[2017-10-01 18:45] VITALS: BP 154/71
[2017-10-01] MEDS ORDERED: Acetaminophen 325 MG Tab PO ONE (20:08)
[2017-10-01] MEDS ORDERED: Sodium Chloride 0.9% 1,000 ML IV ONE (20:08)
[2017-10-01] MEDS ORDERED: Ondansetron 4 MG/2 ML SDV IVPUSH ONE (20:08)
[2017-10-01] MEDS ORDERED: Sodium Chloride 0.9% 10 ML Syringe FLUSH PRN (20:08)
[2017-10-01] MEDS ORDERED: Sodium Chloride 0.9% 500 ML IV ONE (22:01)
--- NOTE | 2017-10-01 22:43 | EDM.PDOC ---
ED HPI GENERAL MEDICAL PROBLEM - General Chief Complaint: Fever Stated Complaint: FEVER Time Seen by Provider: 10/01/17 19:50 Source of Information: Reports: Patient History Limitations: Reports: No Limitations - History of Present Illness INITIAL COMMENTS - FREE TEXT/NARRATIVE: 82 year old female presents with her for evaluation and treatment of fevers and lethargy. Patient was diagnosed with pancreatic cancer last year. She is currently on chemotherapy. Had a whipple procedure done in April of last year. reports that she has a temperature of 101 earlier today. She was wearing a stocking At that time. After removing the cap he retook her temperature and it was 99. Current symptoms include fevers, chills, weakness, fatigue, malaise, cough, abdominal pain and back pain. Patient has chronic abdominal and back pain from her pancreatic cancer. No treatments prior to arrival in the ER. Patient currently sees Dr. Guevara, oncology in [place]. Patient recently hap a port placed for her chemo. The port became infected. Patient currently on Omnicef for her infected port. - Related Data Allergies Allergy/AdvReac Type Severity Reaction Status Date / Time No Known Allergies Allergy Verified 04/19/17 14:57 Home Meds: Home Meds Ascorbic Acid [Vitamin C] 500 mg PO DAILY 10/01/17 [History] Aspirin 81 mg PO DAILY 10/01/17 [History] Capecitabine 1,000 mg PO BID 10/01/17 [History] Capecitabine [Xeloda] 500 mg PO ASDIRECTED 10/01/17 [History] Cefdinir 300 mg PO BID 10/01/17 [History] Cholecalciferol (Vitamin D3) [Vitamin D] 1,000 units PO DAILY 10/01/17 [History] Cyanocobalamin/FA/Pyridoxine [Folbic Tablet] 1 tab PO DAILY 10/01/17 [History] Digestive 8/L.acidoph/Pectin [Digestive Enzymes Tablet] 1 each PO BID 10/01/17 [ History] Dronabinol 2.5 mg PO BEDTIME PRN 10/01/17 [History] Lisinopril 5 mg PO DAILY 10/01/17 [History] Multivitamin [Multivitamins] 1 each PO DAILY 10/01/17 [History] Prochlorperazine Maleate [Compazine] 10 mg PO QID PRN 10/01/17 [History] Triamterene/Hydrochlorothiazid [Dyazide 37.5-25] 1 cap PO DAILY 10/01/17 [ History] Vit C/E/Zn/Coppr/Lutein/Zeaxan [Preservision Areds 2 Softgel] 2 tab PO DAILY [History] Past Medical History HEENT History: Reports: Impaired Vision Cardiovascular History: Reports: High Cholesterol, Hypertension Musculoskeletal History: Reports: Back Pain, Chronic, Fracture, Neck Pain, Chronic Other Musculoskeletal History: foot Neurological History: Reports: CVA Oncologic (Cancer) History: Reports: Pancreatic Social & Family History - Family History Family Medical History: Noncontributory - Tobacco Use Smoking Status *Q: Never Smoker - Caffeine Use Caffeine Use: Reports: Coffee - Recreational Drug Use Recreational Drug Use: No ED ROS GENERAL - Review of Systems Review Of Systems: See Below Constitutional: Reports: Fever, Chills, Decreased Appetite Respiratory: Reports: Cough GI/Abdominal: Reports: Abdominal Pain. Denies: Nausea, Vomiting Musculoskeletal: Reports: Back Pain ED EXAM, GENERAL - Physical Exam Exam: See Below Exam Limited By: No Limitations General Appearance: Alert, WD/WN, No Apparent Distress, Thin, Other (acute on chronically ill appearing) Ears: Normal External Exam Nose: Normal Inspection Throat/Mouth: Normal Inspection, Normal Lips, Normal Oropharynx, Normal Voice, No Airway Compromise Respiratory/Chest: No Respiratory Distress, Lungs Clear, Normal Breath Sounds Cardiovascular: Normal Peripheral Pulses, Regular Rate, Rhythm, No Murmur GI/Abdominal: Normal Bowel Sounds, Soft, Tender (generalized). No: Distended, Rigid Neurological: Alert, Oriented, Normal Cognition Psychiatric: Normal Affect, Normal Mood Skin Exam: Warm, Dry, Normal Color Course - Vital Signs Last Recorded V/S: Last Vital Signs Temp 37.3 C 10/01/17 19:07 Pulse 82 10/01/17 18:43 Resp 19 10/01/17 18:43 BP 154/71 H 10/01/17 18:43 Pulse Ox 93 L 10/01/17 18:43 - Orders/Labs/Meds Labs: Laboratory Tests 10/01/17 10/01/17 10/01/17 Range/Units 20:20 20:20 20:20 WBC 8.35 (3.98-10.04) K/mm3 RBC 4.29 (3.98-5.22) M/mm3 Hgb 12.1 (11.2-15.7) gm/L Hct 35.6 (34.1-44.9) % MCV 83.0 (79.4-94.8) fl MCH 28.2 (25.6-32.2) pg MCHC 34.0 (32.2-35.5) g/dl RDW Std Deviation 38.9 (36.4-46.3) fL Plt Count 164 L (182-369) K/mm3 MPV 9.4 (9.4-12.3) fl Neutrophils % (Manual) 78 H (40-60) % Band Neutrophils % 1 (0-10) % Lymphocytes % (Manual) 17 L (20-40) % Atypical Lymphs % 0 % Monocytes % (Manual) 3 (2-10) % Eosinophils % (Manual) 1 (0.7-5.8) % Basophils % (Manual) 0 L (0.1-1.2) Platelet Estimate Adequate RBC Morph Comment Normal Sodium 138 (136-145) mEq/L Potassium 3.8 (3.5-5.1) mEq/L Chloride 103 (98-107) mEq/L Carbon Dioxide 25 (21-32) mEq/L Anion Gap 13.8 (5-15) BUN 14 (7-18) mg/dL Creatinine 0.8 (0.55-1.02) mg/dL Est Cr Clr Drug Dosing 39.50 mL/min Estimated GFR (MDRD) > 60 (>60) mL/min BUN/Creatinine Ratio 17.5 (14-18) Glucose 114 (83-115) mg/dL Lactic Acid 0.7 (0.4-2.0) mmol/L Calcium 9.3 (8.5-10.1) mg/dL Total Bilirubin 0.9 (0.2-1.0) mg/dL AST 21 (15-37) U/L ALT 31 (14-59) U/L Alkaline Phosphatase 76 (46-116) U/L C-Reactive Protein 1.7 H* (<1.0) mg/dL Total Protein 6.1 L (6.4-8.2) g/dl Albumin 3.5 (3.4-5.0) g/dl Globulin 2.6 gm/dL Albumin/Globulin Ratio 1.4 (1-2) Urine Color (Yellow) Urine Appearance (Clear) Urine pH (5.0-8.0) Ur Specific [place] (1.005-1.030) Urine Protein (Negative) Urine Glucose (UA) (Negative) Urine Ketones (Negative) Urine Occult Blood (Negative) Urine Nitrite (Negative) Urine Bilirubin (Negative) Urine Urobilinogen (0.2-1.0) Ur Leukocyte Esterase (Negative) Urine RBC (0-5) /hpf Urine WBC (0-5) /hpf Ur Epithelial Cells (0-5) /hpf Urine Bacteria (FEW) /hpf Urine Mucus (FEW) /hpf 10/01/17 Range/Units 21:48 WBC (3.98-10.04) K/mm3 RBC (3.98-5.22) M/mm3 Hgb (11.2-15.7) gm/L Hct (34.1-44.9) % MCV (79.4-94.8) fl MCH (25.6-32.2) pg MCHC (32.2-35.5) g/dl RDW Std Deviation (36.4-46.3) fL Plt Count (182-369) K/mm3 MPV (9.4-12.3) fl Neutrophils % (Manual) (40-60) % Band Neutrophils % (0-10) % Lymphocytes % (Manual) (20-40) % Atypical Lymphs % % Monocytes % (Manual) (2-10) % Eosinophils % (Manual) (0.7-5.8) % Basophils % (Manual) (0.1-1.2) Platelet Estimate RBC Morph Comment Sodium (136-145) mEq/L Potassium (3.5-5.1) mEq/L Chloride (98-107) mEq/L Carbon Dioxide (21-32) mEq/L Anion Gap (5-15) BUN (7-18) mg/dL Creatinine (0.55-1.02) mg/dL Est Cr Clr Drug Dosing mL/min Estimated GFR (MDRD) (>60) mL/min BUN/Creatinine Ratio (14-18) Glucose (83-115) mg/dL Lactic Acid (0.4-2.0) mmol/L Calcium (8.5-10.1) mg/dL Total Bilirubin (0.2-1.0) mg/dL AST (15-37) U/L ALT (14-59) U/L Alkaline Phosphatase (46-116) U/L C-Reactive Protein (<1.0) mg/dL Total Protein (6.4-8.2) g/dl Albumin (3.4-5.0) g/dl Globulin gm/dL Albumin/Globulin Ratio (1-2) Urine Color Yellow (Yellow) Urine Appearance Clear (Clear) Urine pH 6.0 (5.0-8.0) Ur Specific [place] 1.025 (1.005-1.030) Urine Protein Negative (Negative) Urine Glucose (UA) Negative (Negative) Urine Ketones 2+ H (Negative) Urine Occult Blood Negative (Negative) Urine Nitrite Negative (Negative) Urine Bilirubin Negative (Negative) Urine Urobilinogen 0.2 (0.2-1.0) Ur Leukocyte Esterase Negative (Negative) Urine RBC 0-5 (0-5) /hpf Urine WBC 0-5 (0-5) /hpf Ur Epithelial Cells 0-5 (0-5) /hpf Urine Bacteria Few (FEW) /hpf Urine Mucus Moderate H (FEW) /hpf Meds: Medications Discontinued Medications Generic Name Dose Route Start Last Admin Trade Name Freq PRN Reason Stop Dose Admin Acetaminophen 650 mg 10/01/17 20:08 10/01/17 20:30 Tylenol PO 10/01/17 20:09 650 mg NOW ONE Administration Sodium Chloride 1,000 mls @ 999 mls/hr 10/01/17 20:08 10/01/17 20:26 Normal Saline IV 10/01/17 21:08 999 mls/hr ONETIME ONE Administration Sodium Chloride 500 mls @ 999 mls/hr 10/01/17 22:01 10/01/17 22:10 Normal Saline IV 10/01/17 22:31 999 mls/hr ONETIME ONE Administration Ondansetron HCl 4 mg 10/01/17 20:08 10/01/17 20:27 Zofran IVPUSH 10/01/17 20:09 4 mg ONETIME ONE Administration Sodium Chloride 10 ml 10/01/17 20:08 10/01/17 20:29 Saline Flush FLUSH 10 ml ASDIRECTED PRN Administration Keep Vein Open - Radiology Interpretation Free Text/Narrative:: chest xray shows no acute intrathoracic process - Re-Assessments/Exams Free Text/Narrative Re-Assessment/Exam: 10/01/17 22:09 rapid strep returned negative. Rapid flu returned negative. Blood and urine cultures pending. Reviewed the lab results and imaging with the patient. She looks greatly improved after receiving a liter of fluids. Will give her another 500 mL bolus and plan to discharge her home. 10/01/17 22:50 Improved would like to go home. Will discharge home. Departure - Departure Time of Disposition: 22:43 Disposition: Home, Self-Care 01 Condition: Fair Clinical Impression: Dehydration - Discharge Information Instructions: Dehydration, Adult, [id number] Referrals: Samara Ga MD [Primary Care Provider] - Javed Guevara MD [Ordering Only Provider] - Forms: ED Department Discharge Additional Instructions: Continue with your current plan of care. Rest. Make sure you are drinking plenty of fluids. Follow-up with your primary care provider next week for recheck. Please return to the ER if your symptoms change or worsen.
--- NOTE | 2017-10-02 14:06 | CR ---
Chest: Two views of the chest were obtained. Comparison: Prior chest x-ray of 04/19/17. Heart size at the upper limits of normal. Tortuous thoracic aorta is seen. Left-sided infusion port is seen. Minimal widening of the superior mediastinum is seen which appears stable. Lungs are clear with no acute parenchymal densities. Lungs are slightly hyperinflated. Mild degenerative spurring is noted within the spine with minimal scoliosis. Previous left shoulder surgery is seen. Impression: 1. Probable emphysematous change. 2. Other incidental findings. Nothing acute is appreciated. Diagnostic code #2
== END 2017-10-01 22:52 | disposition home or self-care (01) ==
LOC: JD.ED 18:33
DX: E86.0 Dehydration (principal); Z79.82 Long term (current) use of aspirin; I10 Essential (primary) hypertension; E78.00 Pure hypercholesterolemia, unspecified; C25.9 Malignant neoplasm of pancreas, unspecified
CPT/HCPCS: 36415; 71046; 80053; 81001; 83605; 85025; 86140; 87040; 87081; 87086; 87430; 87804; 96361; 96374; 99284; A9270; J2405; J7040; J7050; 99283

== ENCOUNTER 2017-11-25 12:16 | Observation (INO) | payer MEDICARE, OTHER ==
[2017-11-25] MEDS ORDERED: Acetaminophen 325 MG Tab PO ONE (13:35)
--- NOTE | 2017-11-25 13:36 | EDM.PDOC ---
ED HPI GENERAL MEDICAL PROBLEM - General Chief Complaint: Fever Stated Complaint: HIGH FEVER Time Seen by Provider: 11/25/17 12:38 Source of Information: Reports: Patient History Limitations: Reports: No Limitations - History of Present Illness INITIAL COMMENTS - FREE TEXT/NARRATIVE: Patient is a 82-year-old female with history of pancreatic cancer who had the Whipple procedure currently on chemotherapy presents to the ED with fever 100.8. Patient states she is on her 3rd cycle of 4 of chemotherapy tx's one time a week. Last chemotherapy was 2 days ago. She was seen at clinic today for IV fluids and was found to have a fever. Patient admits to being chilled. Has some mild pain to the posterior aspect of her neck. At time she's had a sore throat. She also has pain to her left lower/upper quadrant states chronic after Whipple procedure. She underwent 2 rounds of chemotherapy prior to surgery July 2017. She admits to having some diarrhea last week that resolved the following day. She normally receives IV fluids post-chemotherapy. Nothing unusual. States with moving her neck to the right there is some pain on the lateral aspect of the neck. This waxes and wanes in nature. Chronic issue. Denies any neck stiffness. No recent fall. No rash present. No recent sick exposures to influenza. She offers no additional complaints. Denies any shortness of breath, chest pain, cough, ear pain, sinus congestion/runny nose, or pain with urination. She has a history of infected Port-A-Cath Patient currently sees Dr. Guevara, Oncologists in [place]. Posterior Neck Pain Score (Numeric/FACES): 1 - Related Data Allergies Allergy/AdvReac Type Severity Reaction Status Date / Time No Known Allergies Allergy Verified 11/25/17 21:08 Home Meds: Home Meds Ascorbic Acid [Vitamin C] 500 mg PO DAILY 10/01/17 [History] Aspirin 81 mg PO DAILY 10/01/17 [History] Capecitabine 1,500 mg PO PCBREAKFAST 10/01/17 [History] Capecitabine [Xeloda] 500 mg PO BID 10/01/17 [History] Cholecalciferol (Vitamin D3) [Vitamin D] 1,000 units PO DAILY 10/01/17 [History] Cyanocobalamin/FA/Pyridoxine [Folbic Tablet] 2 - 25 mg PO DAILY 10/01/17 [ History] Digestive 8/L.acidoph/Pectin [Digestive Enzymes Tablet] 1 - 2 each PO TID [History] Lisinopril 5 mg PO DAILY 10/01/17 [History] Multivitamin [Multivitamins] 1 each PO DAILY 10/01/17 [History] Prochlorperazine Maleate [Compazine] 10 mg PO QID PRN 10/01/17 [History] Triamterene/Hydrochlorothiazid [Dyazide 37.5-25] 25 - 37.5 mg PO DAILY 10/01/17 [History] Vit C/E/Zn/Coppr/Lutein/Zeaxan [Preservision Areds 2 Softgel] 2 tab PO DAILY [History] Capecitabine 1,000 mg PO PCDINNER 11/25/17 [History] Diphenhyd/Lidocaine/MagAl/Manda [First-Mouthwash BLM Susp] 15 ml PO Q6H PRN 11/25 [History] Loperamide [Imodium AD] 2 mg PO ASDIRECTED PRN 11/25/17 [History] Potassium Chloride [Klor-Con] 20 meq PO DAILY 11/25/17 [History] Past Medical History HEENT History: Reports: Cataract, Impaired Vision Other HEENT History: wears eyeglasses Cardiovascular History: Reports: High Cholesterol, Hypertension Respiratory History: Reports: Pneumonia, Recurrent Gastrointestinal History: Reports: Other (See Below) Other Gastrointestinal History: pancreatic [place] [employer] History: Reports: Musculoskeletal History: Reports: Back Pain, Chronic, Fracture, Neck Pain, Chronic Other Musculoskeletal History: foot Neurological History: Reports: CVA Oncologic (Cancer) History: Reports: Pancreatic - Infectious Disease History Infectious Disease History: Reports: Chicken Pox - Past Surgical History HEENT Surgical History: Reports: Cataract Surgery GI Surgical History: Reports: Cholecystectomy, Other (See Below) Other GI Surgeries/Procedures: WHIPPLE procedure Jul 2017 Female Surgical History: Reports: Hysterectomy Social & Family History - Family History Family Medical History: Noncontributory - Tobacco Use Smoking Status *Q: Never Smoker Second Hand Smoke Exposure: No - Caffeine Use Caffeine Use: Reports: None - Recreational Drug Use Recreational Drug Use: No ED ROS GENERAL - Review of Systems Review Of Systems: ROS reveals no pertinent complaints other than HPI. ED EXAM, GI/ABD - Physical Exam Exam: See Below Exam Limited By: No Limitations General Appearance: Alert, WD/WN, No Apparent Distress Eyes: Bilateral: Normal Appearance Ears: Hearing Grossly Normal Nose: Normal Inspection Throat/Mouth: Normal Voice, No Airway Compromise Neck: Normal Inspection, Supple Respiratory/Chest: No Respiratory Distress, Lungs Clear, Normal Breath Sounds, No Accessory Muscle Use, Chest Non-Tender Cardiovascular: Normal Peripheral Pulses, Regular Rate, Rhythm, Other (Port-A- Cath left chest that has been accessed. No signs of Infection.) GI/Abdominal Exam: Normal Bowel Sounds, Soft, No Organomegaly, No Distention, Tender (Left upper and lower quadrant, Mild discomfort. ) Back Exam: Normal Inspection Extremities: Other (Trace edema to lower legs.) Neurological: Alert, Oriented, CN II-XII Intact, Normal Cognition, No Motor/ Sensory Deficits Psychiatric: Normal Affect, Normal Mood Skin Exam: Warm, Dry, Intact, Normal Color, No Rash Course - Vital Signs Last Recorded V/S: Last Vital Signs Temp 98.8 F 11/26/17 08:50 Pulse 84 11/26/17 08:50 Resp 18 11/26/17 08:50 BP 136/60 11/26/17 08:50 Pulse Ox 96 11/26/17 08:50 Orthostatic Blood Pressure [ 136/54 Standing] Orthostatic Blood Pressure [ 134/51 Sitting] Orthostatic Blood Pressure [ 130/52 Supine] - Orders/Labs/Meds Orders: Active Orders 24 hr Category Date Time Status Orthostatic Vital Signs [RC] ASDIRECTED Care 11/25/17 12:58 Active CULTURE BLOOD [BC] Stat Lab 11/25/17 13:10 Received CULTURE BLOOD [BC] Stat Lab 11/25/17 13:25 Received CULTURE STREP A CONFIRMATION [RM] Stat Lab 11/25/17 13:10 Results CULTURE URINE [RM] Stat Lab 11/25/17 12:50 Received STREP SCRN A RAPID W CULT CONF [RM] Stat Lab 11/25/17 13:10 Results Sodium Chloride 0.9% [Normal Saline] 1,000 ml Med 11/25/17 13:00 Active IV ASDIRECTED Blood Culture x2 Reflex Set [OM.PC] Stat Oth 11/25/17 12:56 Ordered Medication Orders Acetaminophen (Tylenol) 650 mg PO Q6H PRN PRN Reason: Pain/Fever Aspirin (Aspirin) 81 mg PO DAILY [facility]UR[facility] Diphenhydr/Magaldrate/Simeth/Lidoca (First-Mouthwash Blm Susp) 15 ml PO Q6H PRN PRN Reason: Pain Enoxaparin Sodium (Lovenox) 40 mg SUBCUT BEDTIME [facility] Last Admin: 11/25/17 21:37 Dose: 40 mg Hydralazine HCl (Apresoline) 20 mg IVPUSH Q6H PRN PRN Reason: Hypertension Sodium Chloride (Normal Saline) 1,000 mls @ 125 mls/hr IV ASDIRECTED [facility] Last Admin: 11/26/17 11:34 Dose: 75 mls/hr Infusion: 11/26/17 11:34 Dose: 75 mls/hr Admin: 11/26/17 00:23 Dose: 75 mls/hr Infusion: 11/26/17 00:23 Dose: 75 mls/hr Admin: 11/25/17 13:52 Dose: 75 mls/hr Piperacillin Sod/Tazobactam (Sod 4.5 gm/ Sodium Chloride) 100 mls @ 25 mls/hr IV Q8H [facility] Stop: 11/26/17 16:30 Last Admin: 11/26/17 11:34 Dose: 25 mls/hr Infusion: 11/26/17 10:18 Dose: 25 mls/hr Admin: 11/26/17 06:18 Dose: 25 mls/hr Levofloxacin/Dextrose 750 mg/ (Premix) 150 mls @ 100 mls/hr IV Q48H [facility] Piperacillin Sod/Tazobactam (Sod 4.5 gm/ Dextrose/Water) 100 mls @ 25 mls/hr IV Q8H [facility] Non-Formulary Medication (Capecitabine [Capecitabine]) 1,500 mg PO PCBREAKFAST [facility] Non-Formulary Medication (Capecitabine [Capecitabine]) 1,000 mg PO PCDINNER [facility] Non-Formulary Medication (Capecitabine [Xeloda]) 500 mg PO BID [facility] Non-Formulary Medication (Digestive 8/L.Acidoph/Pectin [Digestive Enzymes Tablet ]) 2 each PO TID [facility] Non-Formulary Medication (Loperamide) 2 mg PO ASDIRECTED PRN PRN Reason: Diarrhea Non-Formulary Medication (Multivitamin [Multivitamins]) 1 each PO DAILY [facility] Non-Formulary Medication (Prochlorperazine Maleate) 10 mg PO QID PRN PRN Reason: Nausea Non-Formulary Medication (Vit C/E/Zn/Coppr/Lutein/Zeaxan [Preservision Areds 2 Softgel]) 2 tab PO DAILY [facility] Ondansetron HCl (Zofran) 4 mg IVPUSH Q8H PRN PRN Reason: Nausea/Vomiting Potassium Chloride (Klor-Con M20) 40 meq PO BID [facility] Last Admin: 11/26/17 10:29 Dose: 40 meq Admin: 11/25/17 21:32 Dose: 40 meq Temazepam (Restoril) 7.5 mg PO BEDTIME PRN PRN Reason: Insomnia Labs: Laboratory Tests 11/25/17 11/25/17 11/25/17 Range/Units 12:50 13:10 13:10 WBC 7.94 (3.98-10.04) K/mm3 RBC 2.90 L (3.98-5.22) M/mm3 Hgb 8.7 L (11.2-15.7) gm/L Hct 26.3 L (34.1-44.9) % MCV 90.7 (79.4-94.8) fl MCH 30.0 (25.6-32.2) pg MCHC 33.1 (32.2-35.5) g/dl RDW Std Deviation 63.1 H (36.4-46.3) fL Plt Count 169 L (182-369) K/mm3 MPV 9.6 (9.4-12.3) fl Neut % (Auto) 78.5 H (34.0-71.1) % Lymph % (Auto) 16.6 L (19.3-51.7) % [place] % (Auto) 4.2 L (4.7-12.5) % Eos % (Auto) 0.5 L (0.7-5.8) Baso % (Auto) 0.1 (0.1-1.2) % Neut # (Auto) 6.23 H (1.56-6.13) K/mm3 Lymph # (Auto) 1.32 (1.18-3.74) K/mm3 [place] # (Auto) 0.33 (0.24-0.36) K/mm3 Eos # (Auto) 0.04 (0.04-0.36) K/mm3 Baso # (Auto) 0.01 (0.01-0.08) K/mm3 Neutrophils % (Manual) 77 H (40-60) % Band Neutrophils % 0 (0-10) % Lymphocytes % (Manual) 19 L (20-40) % Atypical Lymphs % 0 % Monocytes % (Manual) 3 (2-10) % Eosinophils % (Manual) 1 (0.7-5.8) % Basophils % (Manual) 0 L (0.1-1.2) Platelet Estimate Adequate Plt Morphology Comment Normal Poikilocytosis 1+ slight Anisocytosis 1+ slight RBC Morph Comment Normal PT 12.1 (8.0-13.0) SECONDS INR 1.13 APTT 27 (22-36) SECONDS Sodium (136-145) mEq/L Potassium (3.5-5.1) mEq/L Chloride (98-107) mEq/L Carbon Dioxide (21-32) mEq/L Anion Gap (5-15) BUN (7-18) mg/dL Creatinine (0.55-1.02) mg/dL Est Cr Clr Drug Dosing mL/min Estimated GFR (MDRD) (>60) mL/min BUN/Creatinine Ratio (14-18) Glucose (83-115) mg/dL Lactic Acid (0.4-2.0) mmol/L Calcium (8.5-10.1) mg/dL Total Bilirubin (0.2-1.0) mg/dL AST (15-37) U/L ALT (14-59) U/L Alkaline Phosphatase (46-116) U/L C-Reactive Protein (<1.0) mg/dL Total Protein (6.4-8.2) g/dl Albumin (3.4-5.0) g/dl Globulin gm/dL Albumin/Globulin Ratio (1-2) Urine Color Yellow (Yellow) Urine Appearance Clear (Clear) Urine pH 5.5 (5.0-8.0) Ur Specific [place] 1.025 (1.005-1.030) Urine Protein Negative (Negative) Urine Glucose (UA) Negative (Negative) Urine Ketones Negative (Negative) Urine Occult Blood Negative (Negative) Urine Nitrite Negative (Negative) Urine Bilirubin Negative (Negative) Urine Urobilinogen 0.2 (0.2-1.0) Ur Leukocyte Esterase Negative (Negative) Urine RBC 0-5 (0-5) /hpf Urine WBC 0-5 (0-5) /hpf Ur Epithelial Cells 0-5 (0-5) /hpf Urine Bacteria Few (FEW) /hpf Urine Mucus Few (FEW) /hpf Mycoplasma pneumon IgM (NEGATIVE) 11/25/17 11/25/17 11/25/17 Range/Units 13:10 13:10 13:10 WBC (3.98-10.04) K/mm3 RBC (3.98-5.22) M/mm3 Hgb (11.2-15.7) gm/L Hct (34.1-44.9) % MCV (79.4-94.8) fl MCH (25.6-32.2) pg MCHC (32.2-35.5) g/dl RDW Std Deviation (36.4-46.3) fL Plt Count (182-369) K/mm3 MPV (9.4-12.3) fl Neut % (Auto) (34.0-71.1) % Lymph % (Auto) (19.3-51.7) % [place] % (Auto) (4.7-12.5) % Eos % (Auto) (0.7-5.8) Baso % (Auto) (0.1-1.2) % Neut # (Auto) (1.56-6.13) K/mm3 Lymph # (Auto) (1.18-3.74) K/mm3 [place] # (Auto) (0.24-0.36) K/mm3 Eos # (Auto) (0.04-0.36) K/mm3 Baso # (Auto) (0.01-0.08) K/mm3 Neutrophils % (Manual) (40-60) % Band Neutrophils % (0-10) % Lymphocytes % (Manual) (20-40) % Atypical Lymphs % % Monocytes % (Manual) (2-10) % Eosinophils % (Manual) (0.7-5.8) % Basophils % (Manual) (0.1-1.2) Platelet Estimate Plt Morphology Comment Poikilocytosis Anisocytosis RBC Morph Comment PT (8.0-13.0) SECONDS INR APTT (22-36) SECONDS Sodium 138 (136-145) mEq/L Potassium 3.3 L (3.5-5.1) mEq/L Chloride 105 (98-107) mEq/L Carbon Dioxide 25 (21-32) mEq/L Anion Gap 11.3 (5-15) BUN 17 (7-18) mg/dL Creatinine 0.7 (0.55-1.02) mg/dL Est Cr Clr Drug Dosing 45.14 mL/min Estimated GFR (MDRD) > 60 (>60) mL/min BUN/Creatinine Ratio 24.3 H (14-18) Glucose 100 (83-115) mg/dL Lactic Acid 0.7 (0.4-2.0) mmol/L Calcium 8.2 L (8.5-10.1) mg/dL Total Bilirubin 1.1 H (0.2-1.0) mg/dL AST 24 (15-37) U/L ALT 30 (14-59) U/L Alkaline Phosphatase 101 (46-116) U/L C-Reactive Protein 2.0 H* (<1.0) mg/dL Total Protein 4.7 L (6.4-8.2) g/dl Albumin 2.6 L (3.4-5.0) g/dl Globulin 2.1 gm/dL Albumin/Globulin Ratio 1.2 (1-2) Urine Color (Yellow) Urine Appearance (Clear) Urine pH (5.0-8.0) Ur Specific [place] (1.005-1.030) Urine Protein (Negative) Urine Glucose (UA) (Negative) Urine Ketones (Negative) Urine Occult Blood (Negative) Urine Nitrite (Negative) Urine Bilirubin (Negative) Urine Urobilinogen (0.2-1.0) Ur Leukocyte Esterase (Negative) Urine RBC (0-5) /hpf Urine WBC (0-5) /hpf Ur Epithelial Cells (0-5) /hpf Urine Bacteria (FEW) /hpf Urine Mucus (FEW) /hpf Mycoplasma pneumon IgM (NEGATIVE) 11/25/17 Range/Units 13:10 WBC (3.98-10.04) K/mm3 RBC (3.98-5.22) M/mm3 Hgb (11.2-15.7) gm/L Hct (34.1-44.9) % MCV (79.4-94.8) fl MCH (25.6-32.2) pg MCHC (32.2-35.5) g/dl RDW Std Deviation (36.4-46.3) fL Plt Count (182-369) K/mm3 MPV (9.4-12.3) fl Neut % (Auto) (34.0-71.1) % Lymph % (Auto) (19.3-51.7) % [place] % (Auto) (4.7-12.5) % Eos % (Auto) (0.7-5.8) Baso % (Auto) (0.1-1.2) % Neut # (Auto) (1.56-6.13) K/mm3 Lymph # (Auto) (1.18-3.74) K/mm3 [place] # (Auto) (0.24-0.36) K/mm3 Eos # (Auto) (0.04-0.36) K/mm3 Baso # (Auto) (0.01-0.08) K/mm3 Neutrophils % (Manual) (40-60) % Band Neutrophils % (0-10) % Lymphocytes % (Manual) (20-40) % Atypical Lymphs % % Monocytes % (Manual) (2-10) % Eosinophils % (Manual) (0.7-5.8) % Basophils % (Manual) (0.1-1.2) Platelet Estimate Plt Morphology Comment Poikilocytosis Anisocytosis RBC Morph Comment PT (8.0-13.0) SECONDS INR APTT (22-36) SECONDS Sodium (136-145) mEq/L Potassium (3.5-5.1) mEq/L Chloride (98-107) mEq/L Carbon Dioxide (21-32) mEq/L Anion Gap (5-15) BUN (7-18) mg/dL Creatinine (0.55-1.02) mg/dL Est Cr Clr Drug Dosing mL/min Estimated GFR (MDRD) (>60) mL/min BUN/Creatinine Ratio (14-18) Glucose (83-115) mg/dL Lactic Acid (0.4-2.0) mmol/L Calcium (8.5-10.1) mg/dL Total Bilirubin (0.2-1.0) mg/dL AST (15-37) U/L ALT (14-59) U/L Alkaline Phosphatase (46-116) U/L C-Reactive Protein (<1.0) mg/dL Total Protein (6.4-8.2) g/dl Albumin (3.4-5.0) g/dl Globulin gm/dL Albumin/Globulin Ratio (1-2) Urine Color (Yellow) Urine Appearance (Clear) Urine pH (5.0-8.0) Ur Specific [place] (1.005-1.030) Urine Protein (Negative) Urine Glucose (UA) (Negative) Urine Ketones (Negative) Urine Occult Blood (Negative) Urine Nitrite (Negative) Urine Bilirubin (Negative) Urine Urobilinogen (0.2-1.0) Ur Leukocyte Esterase (Negative) Urine RBC (0-5) /hpf Urine WBC (0-5) /hpf Ur Epithelial Cells (0-5) /hpf Urine Bacteria (FEW) /hpf Urine Mucus (FEW) /hpf Mycoplasma pneumon IgM Negative (NEGATIVE) Meds: Medications Generic Name Dose Route Start Last Admin Trade Name Freq PRN Reason Stop Dose Admin Acetaminophen 650 mg 11/25/17 19:25 Tylenol PO Q6H PRN Pain/Fever Aspirin 81 mg 11/26/17 09:00 Aspirin PO DAILY [facility]URENCE Diphenhydr/Magaldrate/Simeth/Lidoca 15 ml 11/25/17 19:14 First-Mouthwash Blm Susp PO Q6H PRN Pain Enoxaparin Sodium 40 mg 11/25/17 21:00 11/25/17 21:37 Lovenox SUBCUT 40 mg BEDTIME LAURENCE Administration Hydralazine HCl 20 mg 11/25/17 19:21 Apresoline IVPUSH Q6H PRN Hypertension Sodium Chloride 1,000 mls @ 125 mls/hr 11/25/17 13:00 11/26/17 11:34 Normal Saline IV 75 mls/hr ASDIRECTED LAURENCE Administration Piperacillin Sod/Tazobactam 100 mls @ 25 mls/hr 11/26/17 04:00 11/26/17 11:34 Sod 4.5 gm/ Sodium Chloride IV 11/26/17 16:30 25 mls/hr Q8H [facility]ENCE Administration Levofloxacin/Dextrose 750 mg/ 150 mls @ 100 mls/hr 11/27/17 17:00 Premix IV Q48H [facility] Piperacillin Sod/Tazobactam 100 mls @ 25 mls/hr 11/26/17 19:30 Sod 4.5 gm/ Dextrose/Water IV Q8H [facility] Non-Formulary Medication 1,500 mg 11/26/17 10:00 Capecitabine [Capecitabine] PO PCBREAKFAST [facility] Non-Formulary Medication 1,000 mg 11/26/17 19:00 Capecitabine [Capecitabine] PO PCDINNER [facility] Non-Formulary Medication 500 mg 11/25/17 21:00 Capecitabine [Xeloda] PO BID [facility] Non-Formulary Medication 2 each 11/25/17 21:00 Digestive 8/L.Acidoph/Pectin [Digestive Enzymes Tablet] PO TID [facility] Non-Formulary Medication 2 mg 11/25/17 19:14 Loperamide PO ASDIRECTED PRN Diarrhea Non-Formulary Medication 1 each 11/26/17 09:00 Multivitamin [Multivitamins] PO DAILY [facility] Non-Formulary Medication 10 mg 11/25/17 19:14 Prochlorperazine Maleate PO QID PRN Nausea Non-Formulary Medication 2 tab 11/26/17 09:00 Vit C/E/Zn/Coppr/Lutein/Zeaxan [Preservision Areds 2 Softgel] PO DAILY [facility] Ondansetron HCl 4 mg 11/25/17 19:17 Zofran IVPUSH Q8H PRN Nausea/Vomiting Potassium Chloride 40 meq 11/25/17 21:00 11/26/17 10:29 Klor-Con M20 PO 40 meq BID [facility]ENCE Administration Temazepam 7.5 mg 11/25/17 21:46 Restoril PO BEDTIME PRN Insomnia Discontinued Medications Generic Name Dose Route Start Last Admin Trade Name Freq PRN Reason Stop Dose Admin Acetaminophen 650 mg 11/25/17 13:35 11/25/17 14:15 Tylenol PO 11/25/17 13:36 650 mg NOW ONE Administration Diatrizoate Meglum/Diatrizoate Sod 120 ml 11/25/17 14:48 11/25/17 15:47 Gastrografin 37% PO 11/25/17 14:49 90 ml ONETIME ONE Administration Levofloxacin/Dextrose 750 mg/ 150 mls @ 100 mls/hr 11/25/17 17:03 11/25/17 17 :17 Premix IV 11/25/17 18:32 100 mls/hr ONETIME ONE Administration Piperacillin Sod/Tazobactam 100 mls @ 200 mls/hr 11/25/17 19:30 11/25/17 21: 32 Sod 4.5 gm/ Sodium Chloride IV 11/25/17 19:59 200 mls/hr ONETIME ONE Administration Iopamidol 100 ml 11/25/17 14:48 11/25/17 15:47 Isovue-300 (61%) IVPUSH 11/25/17 14:49 100 ml ONETIME ONE Administration - Re-Assessments/Exams Free Text/Narrative Re-Assessment/Exam: 11/25/17 14:14 Temp recheck 101.2. Patient has not received the Tylenol yet. CXR and Abdominal x-ray reviewed with Dr. Villa. No acute findings noted. Final interpretation is pending. The patient on an as IV drip 75 mL per hour, Tylenol 650 mg by mouth. Initial labs and studies include CBC, chem 14, CRP, blood cultures 2, strep screen, influenza screen, urine culture, lactic acid, x-ray of the chest and abdomen, and orthostatic vitals. Labs reviewed: White blood cell count 7.94, hemoglobin 8.7, platelet count 169, neutrophil percent is 78.5, neutrophil number is 6.23, lactic acid 0.7, and CRP 2.0. Hemoglobin 8.7 is low from previous CBC approximate 2 months ago of 12.1. UA has not been obtained yet. In addition chemistry panel still pending. Orthostatic vitals were negative per nursing staff. Patient received liter of IVFs at [place] Prior to evaluation. Influenza and strep screen both negative. 11/25/17 14:37 Abdomen x-ray final interpretation: slightly prominent gas filled loops of small bowel. May represent small bowel ileus versus mild partial small bowel obstruction. Chest x-ray two-view impression: Blunting of the costophrenic angles possibly due to minimal pleural effusions. Erythematous change. No other incidental findings with nothing acute otherwise been seen. [address] the abdomen and pelvis with contrast including oral. Awaiting CMP. Results. Will get the oral contrast started. 11/25/17 15:26 NO UA results as of yet. 11/25/17 15:39 Chemistry panel revealed potassium 3.3. Otherwise no additional concerning findings at this time. UA negative for infection. CT abdomen and pelvis with IV and oral contrast: 11/25/17 16:[address] completed awaiting for results. 11/25/17 16:37 Bilateral small pleural effusions with no signs of small bowel obstruction. [address] Johnson to speak about possible admission. She did not answer. Unable to leave a message. Stool Hemoccult card was negative. 11/25/17 16:[address] Chiang Oncologists on-call at [facility]. Suggested admitting to at least observation for fever of unknown etiology. Pancultures. IV levaquin for possible pneumonia with CXR in the a.m. and review of cultures prior to discharge. [address] Johnson and she has accepted the patient. MCG completed patient meets observation status. Departure - Departure Time of Disposition: 16:41 Disposition: Refer to Observation Condition: Fair Clinical Impression: Fever of unknown origin, Hypokalemia Anemia Qualifiers: Anemia type: unspecified type Qualified Code(s): D64.9 - Anemia, unspecified - Discharge Information - My Orders Last 24 Hours: My Active Orders 11/25/17 12:50 CULTURE URINE [RM] Stat 11/25/17 12:56 Blood Culture x2 Reflex Set [OM.PC] Stat 11/25/17 12:58 Orthostatic Vital Signs [RC] ASDIRECTED 11/25/17 13:00 Sodium Chloride 0.9% [Normal Saline] 1,000 ml IV ASDIRECTED 11/25/17 13:10 CULTURE BLOOD [BC] Stat CULTURE STREP A CONFIRMATION [RM] Stat STREP SCRN A RAPID W CULT CONF [RM] Stat 11/25/17 13:25 CULTURE BLOOD [BC] Stat - Assessment/Plan Last 24 Hours: My Active Orders 11/25/17 12:50 CULTURE URINE [RM] Stat 11/25/17 12:56 Blood Culture x2 Reflex Set [OM.PC] Stat 11/25/17 12:58 Orthostatic Vital Signs [RC] ASDIRECTED 11/25/17 13:00 Sodium Chloride 0.9% [Normal Saline] 1,000 ml IV ASDIRECTED 11/25/17 13:10 CULTURE BLOOD [BC] Stat CULTURE STREP A CONFIRMATION [RM] Stat STREP SCRN A RAPID W CULT CONF [RM] Stat 11/25/17 13:25 CULTURE BLOOD [BC] Stat
[2017-11-25] MEDS: Sodium Chloride 0.9% 1,000 ML IV SCH (13:52)
--- NOTE | 2017-11-25 14:31 | CR ---
Chest: Two views of the chest were obtained. Comparison: Prior chest x-ray of 10/01/17. Heart size is within normal limits. Tortuous thoracic aorta is seen. Slight blunting of the costophrenic angles are seen possibly due to minimal pleural effusions. Lungs otherwise are clear. Left-sided infusion port is seen. Lungs are hyperinflated compatible with emphysematous change. Minimal degenerative change is seen within the spine. Previous left shoulder surgery is noted. Impression: 1. Blunting of the costophrenic angles possibly due to minimal pleural effusions. 2. Emphysematous change. 3. Other incidental findings with nothing acute otherwise being seen. Diagnostic code #3
--- NOTE | 2017-11-25 14:31 | CR ---
Abdomen: Supine and upright views of the abdomen were obtained. Comparison: Previous abdominal x-ray of 03/10/17. Slightly prominent gas-filled loops of small bowel are seen. Single surgical clips are seen within the left abdomen. Vascular calcification is noted. Minimal scoliosis and degenerative change is noted within the spine. No free air is seen. Surgical anastomotic sutures also seen within the left upper abdomen. Impression: 1. Slightly prominent gas-filled loops of small bowel. Findings may represent small bowel ileus versus a mild partial small bowel obstruction. 2. Other incidental findings. Diagnostic code #3
[2017-11-25] MEDS ORDERED: Diatrizoate Meglumine/Diatrizoate Sodium 37% 120 ML Bottle PO ONE (14:48)
[2017-11-25] MEDS ORDERED: Iopamidol 612 MG/ML 100 ML Bottle IVPUSH ONE (14:48)
--- NOTE | 2017-11-25 16:34 | CT ---
CT abdomen and pelvis Technique: Multiple axial sections were obtained from above the dome of the diaphragm inferiorly through the pubic symphysis. Intravenous contrast and oral contrast has been given. Comparison: Previous chest x-ray and abdominal x-ray performed earlier on the same day. Prior chest CT abdomen and pelvis exam of 04/19/17 is also available. Findings: Small bilateral pleural effusions are seen causing mild compressive type atelectasis. Liver shows mild fatty infiltration. Intrahepatic biliary air is seen which is stable from previous exam. Small hiatal hernia is seen. Spleen appears within normal limits. Adrenal glands show no nodule. Previous study showed a biliary stent which is not identified on current study. Surgical clips are seen within the abdomen. Previous stomach surgery appears to be present. Fluid-filled tubular structure is seen arising from the upper pole of the left kidney most likely representing dilated upper pole duplicated collecting system which is stable from previous exam. Lower pole ureter shows no dilatation with delayed images showing contrast within this distal left ureter as well as contrast within the right ureter. Appendix is visualized and appears normal in size. No free fluid or inflammatory change is seen. Bone window settings were reviewed which shows scattered degenerative change within the spine. Impression: 1. Small bilateral pleural effusions with mild compressive type atelectasis. 2. No evidence of small bowel obstruction seen on this study. Small bowel appears similar to prior CT exam. 3. Other incidental findings as noted above. Diagnostic code #3
[2017-11-25] MEDS ORDERED: Levofloxacin/Dextrose 5%-Water 750 MG in Premix Bag 1 BAG IV ONE (17:03)
--- NOTE | 2017-11-25 18:45 | PCM.HP ---
H&P History of Present Illness - General Date of Service: 11/25/17 Admit Problem/Dx: Admission Diagnosis/Problem Admission Diagnosis/Problem Fever of unknown origin Source of Information: Patient, Family, Provider History Limitations: Reports: No Limitations - History of Present Illness Initial Comments - Free Text/Narative: 82 year old female with PMH of pancreatic cancer, s/p Whipple; receiving CTX as prescribed. Current CTX schedule is once a week. She denies chills however is reported to have had an elevated temp documented at the clinic. 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 Denies headache, change of vision, sore throat , nasal congestion or chest pain. Admits to generalized weakness, and occasional episodes of diarrhea. 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 She will be admitted for a fever evaluation ; CTX as prescribed will be continued. Onset of Symptoms: Reports: Gradual Symptom Onset Date: 11/25/17 Duration of Symptoms: Reports: Hour(s):, Getting Worse Location: Reports: Generalized Improves with: Reports: Medication Worsens with: Reports: None Context: Reports: Sick Contact (unknown) Associated Symptoms: Reports: Loss of Appetite, Shortness of Breath, Weakness Posterior Neck Pain Score (Numeric/FACES): 1 - Related Data Allergies/Adverse Reactions: Allergies Allergy/AdvReac Type Severity Reaction Status Date / Time No Known Allergies Allergy Verified 11/25/17 21:08 Home Medications: Home Meds Ascorbic Acid [Vitamin C] 500 mg PO DAILY 10/01/17 [History] Aspirin 81 mg PO DAILY 10/01/17 [History] Capecitabine 1,500 mg PO PCBREAKFAST 10/01/17 [History] Cholecalciferol (Vitamin D3) [Vitamin D] 1,000 units PO DAILY 10/01/17 [History] Cyanocobalamin/FA/Pyridoxine [Folbic Tablet] 2 - 25 mg PO DAILY 10/01/17 [ History] Lisinopril 5 mg PO DAILY 10/01/17 [History] Multivitamin [Multivitamins] 1 each PO DAILY 10/01/17 [History] Prochlorperazine Maleate [Compazine] 10 mg PO QID PRN 10/01/17 [History] Triamterene/Hydrochlorothiazid [Dyazide 37.5-25] 25 - 37.5 mg PO DAILY 10/01/17 [History] Vit C/E/Zn/Coppr/Lutein/Zeaxan [Preservision Areds 2 Softgel] 2 tab PO DAILY [History] Capecitabine 1,000 mg PO PCDINNER 11/25/17 [History] Diphenhyd/Lidocaine/MagAl/Manda [First-Mouthwash BLM Susp] 15 ml PO Q6H PRN 11/25 [History] Loperamide [Imodium AD] 2 mg PO ASDIRECTED PRN 11/25/17 [History] Potassium Chloride [Klor-Con] 20 meq PO DAILY 11/25/17 [History] Past Medical History HEENT History: Reports: Cataract, Impaired Vision Other HEENT History: wears eyeglasses Cardiovascular History: Reports: High Cholesterol, Hypertension Respiratory History: Reports: Pneumonia, Recurrent Gastrointestinal History: Reports: Other (See Below) Other Gastrointestinal History: pancreatic 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: Musculoskeletal History: Reports: Back Pain, Chronic, Fracture, Neck Pain, Chronic Other Musculoskeletal History: foot Neurological History: Reports: CVA Oncologic (Cancer) History: Reports: Pancreatic - Infectious Disease History Infectious Disease History: Reports: Chicken Pox - Past Surgical History HEENT Surgical History: Reports: Cataract Surgery GI Surgical History: Reports: Cholecystectomy, Other (See Below) Other GI Surgeries/Procedures: WHIPPLE procedure Jul 2017 Female Surgical History: Reports: Hysterectomy Social & Family History - Family History Family Medical History: Noncontributory - Tobacco Use Smoking Status *Q: Never Smoker Second Hand Smoke Exposure: No - Caffeine Use Caffeine Use: Reports: None - Recreational Drug Use Recreational Drug Use: No H&P Review of Systems - Review of Systems: Review Of Systems: See Below General: Reports: Weakness, Decreased Appetite HEENT: Reports: No Symptoms Pulmonary: Reports: No Symptoms Cardiovascular: Reports: No Symptoms Gastrointestinal: Reports: No Symptoms Genitourinary: Reports: No Symptoms Musculoskeletal: Reports: Neck Pain Skin: Reports: No Symptoms Psychiatric: Reports: No Symptoms Neurological: Reports: No Symptoms Hematologic/Lymphatic: Reports: Anemia Immunologic: Reports: No Symptoms Exam - Exam Exam: See Below - Vital Signs Vital Signs: Last Vital Signs Temp 37.9 C 11/25/17 16:16 Pulse 79 11/25/17 16:16 Resp 20 11/25/17 16:16 BP 138/58 L 11/25/17 16:16 Pulse Ox 97 11/25/17 16:16 Weight: 55.338 kg - Exam Quality Assessment: Supplemental Oxygen, DVT Prophylaxis General: Alert, Oriented, Cooperative HEENT: EACs Clear, EOMI, Pupils Equal, Pupils Reactive, PERRLA Neck: Trachea Midline Lungs: Normal Respiratory Effort, Decreased Breath Sounds Cardiovascular: Regular Rate, Regular Rhythm GI/Abdominal Exam: Normal Bowel Sounds, Soft, Non-Tender, No Organomegaly, No Distention (Female) Exam: Deferred Rectal (Female) Exam: Deferred Back Exam: Normal Inspection Extremities: Normal Inspection, Non-Tender Skin: Warm Neurological: Cranial Nerves Intact, Normal Speech Neuro Extensive - Mental Status: Alert, Oriented x3 Neuro Extensive - Motor, Sensory, Reflexes: CN II-XII Intact Psychiatric: Alert, Normal Affect, Normal Mood - Patient Data Result Diagrams: 11/26/17 05:04 11/26/17 05:04 *Q Meaningful Use (ADM) - VTE *Q VTE Criteria *Q: - Stroke *Q Stroke Criteria *Q: - AMI *Q AMI Criteria *Q: - Problem List (1) Anemia SNOMED Code(s): 101845804 ICD Code: D64.9 - ANEMIA, UNSPECIFIED Status: Acute Current Visit: Yes Qualifiers: Anemia type: unspecified type Qualified Code(s): D64.9 - Anemia, unspecified (2) Fever of unknown origin SNOMED Code(s): 2692615 ICD Code: R50.9 - FEVER, UNSPECIFIED Status: Acute Current Visit: Yes (3) Hypokalemia SNOMED Code(s): 59692914 ICD Code: E87.6 - HYPOKALEMIA Status: Acute Current Visit: Yes (4) Pancreatic cancer SNOMED Code(s): 063289504 ICD Code: C25.9 - MALIGNANT NEOPLASM OF PANCREAS, UNSPECIFIED Status: Acute Current Visit: No Qualifiers: Pancreatic malignancy location: unspecified Qualified Code(s): C25.9 - Malignant neoplasm of pancreas, unspecified Problem List Initiated/Reviewed/Updated: Yes Orders Last 24hrs: Medication Orders Sodium Chloride (Normal Saline) 1,000 mls @ 75 mls/hr IV ASDIRECTED [facility] Last Admin: 11/25/17 13:52 Dose: 75 mls/hr Assessment/Plan Comment:: Impression: Febrile post CTX Dehydration History of pancreatic cancer, S/P Whipple procedure (07/2017) Chronic HTN HLD History of PNA History of CVA Plan: IVF Possible T/C, 2 units PRBCs Infectious work up DVT assessment Droplet isolation Empiric ATB, Levoquin/Zosyn DVT/GI prophylaxis Obs with telemetry
[2017-11-25] MEDS ORDERED: Diphenhydramine/Lidocaine/MagAl/Simethicone 119 ML Bottle PO PRN (19:14)
[2017-11-25] MEDS ORDERED: Prochlorperazine 5 MG Tab PO PRN (19:14)
[2017-11-25] MEDS ORDERED: Loperamide 2 MG Cap PO PRN (19:14)
[2017-11-25] MEDS ORDERED: Ondansetron 4 MG/2 ML SDV IVPUSH PRN (19:17)
[2017-11-25] MEDS ORDERED: hydrALAZINE 20 MG/ML SDV IVPUSH PRN (19:21)
[2017-11-25] MEDS ORDERED: Acetaminophen 325 MG Tab PO PRN (19:25)
[2017-11-25] MEDS ORDERED: Piperacillin/Tazobactam 4.5 GM in Sodium Chloride 0.9% 100 ML IV ONE (19:30)
[2017-11-25] MEDS ORDERED: DIGESTIVE PO SCH (21:00)
[2017-11-25] MEDS ORDERED: [UNRECOGNIZED DRUG - OTHER] PO SCH (21:00)
[2017-11-25] MEDS: Potassium Chloride 20 MEQ Tab.ER PO SCH (21:32)
[2017-11-25] MEDS: Enoxaparin 40 MG/0.4 ML Syringe SUBCUT SCH (21:37)
[2017-11-25] MEDS ORDERED: Temazepam 7.5 MG Cap PO PRN (21:46)
[2017-11-26] MEDS: Sodium Chloride 0.9% 1,000 ML IV SCH ×2 (00:23→11:34)
[2017-11-26] MEDS: Piperacillin/Tazobactam 4.5 GM in Sodium Chloride 0.9% 100 ML IV SCH ×2 (06:18→11:34)
--- NOTE | 2017-11-26 09:00 | US ---
Bilateral lower extremity deep venous ultrasound: Duplex and color flow imaging was obtained of the right and left common femoral, proximal greater saphenous, superficial femoral, popliteal, posterior tibial and peroneal veins. Findings: Normal phasic flow, augmentation and compression is seen. Small popliteal cyst believed to be present posterior to both knees. Finding on the right side measures 2.8 cm and finding on left side measures 4.1 cm. Impression: 1. Bilateral popliteal cysts. 2. No evidence of deep venous thrombosis is seen within either the right or left lower extremity. Diagnostic code #2
--- NOTE | 2017-11-26 09:30 | CR ---
Chest: Two views of the chest were obtained. Comparison: Prior chest x-ray of 11/25/17. Small pleural effusions are seen. Lungs otherwise are clear. Heart size is normal. Mild tortuosity of the thoracic aorta is seen. Infusion catheter is seen entering from the left side. Bony structures are osteopenic. Mild degenerative change is seen within the spine. Impression: 1. Small pleural effusions. 2. Other incidental findings. Diagnostic code #3
[2017-11-26] MEDS: Potassium Chloride 20 MEQ Tab.ER PO SCH ×2 (10:29→20:41)
[2017-11-26] MEDS ORDERED: Furosemide 40 MG/4 ML VIAL IV ONE (14:23)
--- NOTE | 2017-11-26 14:26 | PCM.PN ---
- General Info Date of Service: 11/26/17 Admission Dx/Problem (Free Text): Admission Diagnosis/Problem Admission Diagnosis/Problem Fever of unknown origin Subjective Update: In to see "Trang." She is lying in bed. She has not had any fevers since last night. She is reporting some diarrhea which may be due to oral contrast however C. diff testing has been ordered. She is receiving 2 units of blood as her hgb has been low. She reports some "dark" stools since admission. Will order occult stool. Will also order folic acid, B12, and iron panel. She has been receiving chemotherapy so this may be the reason for her anemia as well. She has not had a fever since last night. Her workup has thus far been negative. She has no current concerns. No nursing concerns noted. Functional Status: Reports: Pain Controlled, Tolerating Diet, Ambulating, Urinating. Denies: New Symptoms - Review of Systems General: Reports: Weakness, Fatigue, Malaise. Denies: Fever, Chills HEENT: Reports: No Symptoms Pulmonary: Reports: No Symptoms. Denies: Shortness of Breath, Cough, Sputum, Wheezing Cardiovascular: Reports: No Symptoms. Denies: Chest Pain, Palpitations, Dyspnea on Exertion, Edema, Lightheadedness Gastrointestinal: Reports: Diarrhea. Denies: Abdominal Pain, Constipation, Nausea, Vomiting Genitourinary: Reports: Frequency (due to lasix ). Denies: Dysuria, Burning, Pain Musculoskeletal: Reports: No Symptoms Skin: Reports: No Symptoms Neurological: Reports: No Symptoms Psychiatric: Reports: No Symptoms - Patient Data Vitals - Most Recent: Last Vital Signs Temp 98.8 F 11/26/17 08:50 Pulse 84 11/26/17 08:50 Resp 18 11/26/17 08:50 BP 136/60 11/26/17 08:50 Pulse Ox 96 11/26/17 08:50 Weight - Most Recent: 124 lb 1.6 oz I&O - Last 24 Hours: Intake & Output 11/25/17 11/26/17 11/26/17 22:59 06:59 14:59 Intake Total 1400 Balance 1400 Lab Results Last 24 Hours: Laboratory Results - last 24 hr 11/26/17 11/26/17 11/26/17 Range/Units 05:04 05:04 05:04 WBC 4.02 (3.98-10.04) K/mm3 RBC 2.77 L (3.98-5.22) M/mm3 Hgb 8.6 L (11.2-15.7) gm/L Hct 25.5 L (34.1-44.9) % MCV 92.1 (79.4-94.8) fl MCH 31.0 (25.6-32.2) pg MCHC 33.7 (32.2-35.5) g/dl RDW Std Deviation 65.0 H (36.4-46.3) fL Plt Count 159 L (182-369) K/mm3 MPV 9.5 (9.4-12.3) fl Neut % (Auto) 71.2 H (34.0-71.1) % Lymph % (Auto) 21.9 (19.3-51.7) % Duc[place]ne % (Auto) 5.0 (4.7-12.5) % Eos % (Auto) 1.7 (0.7-5.8) Baso % (Auto) 0.2 (0.1-1.2) % Neut # (Auto) 2.86 (1.56-6.13) K/mm3 Lymph # (Auto) 0.88 L (1.18-3.74) K/mm3 [place]ne # (Auto) 0.20 L (0.24-0.36) K/mm3 Eos # (Auto) 0.07 (0.04-0.36) K/mm3 Baso # (Auto) 0.01 (0.01-0.08) K/mm3 Sodium 146 H (136-145) mEq/L Potassium 4.5 (3.5-5.1) mEq/L Chloride 112 H (98-107) mEq/L Carbon Dioxide 25 (21-32) mEq/L Anion Gap 13.5 (5-15) BUN 13 (7-18) mg/dL Creatinine 0.7 (0.55-1.02) mg/dL Est Cr Clr Drug Dosing 45.14 mL/min Estimated GFR (MDRD) > 60 (>60) mL/min BUN/Creatinine Ratio 18.6 H (14-18) Glucose 96 (83-115) mg/dL Lactic Acid 0.5 (0.4-2.0) mmol/L Calcium 8.0 L (8.5-10.1) mg/dL C-Reactive Protein 5.7 H* (<1.0) mg/dL TSH 3rd Generation 2.160 (0.358-3.74) uIU/mL Med Orders - Current: Current Medications Acetaminophen (Tylenol) 650 mg PO Q6H PRN PRN Reason: Pain/Fever Aspirin (Aspirin) 81 mg PO DAILY [facility] Diphenhydr/Magaldrate/Simeth/Lidoca (First-Mouthwash Blm Susp) 15 ml PO Q6H PRN PRN Reason: Pain Enoxaparin Sodium (Lovenox) 40 mg SUBCUT BEDTIME [facility] Last Admin: 11/25/17 21:37 Dose: 40 mg Hydralazine HCl (Apresoline) 20 mg IVPUSH Q6H PRN PRN Reason: Hypertension Sodium Chloride (Normal Saline) 1,000 mls @ 125 mls/hr IV ASDIRECTED [facility] Last Admin: 11/26/17 11:34 Dose: 75 mls/hr Piperacillin Sod/Tazobactam (Sod 4.5 gm/ Sodium Chloride) 100 mls @ 25 mls/hr IV Q8H [facility] Stop: 11/26/17 16:30 Last Admin: 11/26/17 11:34 Dose: 25 mls/hr Levofloxacin/Dextrose 750 mg/ (Premix) 150 mls @ 100 mls/hr IV Q48H [facility] Piperacillin Sod/Tazobactam (Sod 4.5 gm/ Dextrose/Water) 100 mls @ 25 mls/hr IV Q8H [facility] Loperamide HCl (Imodium) 2 mg PO ASDIRECTED PRN PRN Reason: Diarrhea Multivitamins (Thera) 1 each PO DAILY [facility] Ondansetron HCl (Zofran) 4 mg IVPUSH Q8H PRN PRN Reason: Nausea/Vomiting Xeloda [Capecitabine (] 500 Mg Tab) 0 each PO PCBREAKFAST [facility] Xeloda [Capecitabine (] 500 Mg Tab) 0 each PO PCDINNER [facility] Capecitabine [Xeloda (] 500 Mg) 0 each PO BID [facility] Digestive 8/L. Acidoph/Pectin [ Digestive Enzymes Tablet] 0 each PO TID [facility] Potassium Chloride (Klor-Con M20) 40 meq PO BID [facility] Last Admin: 11/26/17 10:29 Dose: 40 meq Prochlorperazine Maleate (Compazine) 10 mg PO QID PRN PRN Reason: Nausea Temazepam (Restoril) 7.5 mg PO BEDTIME PRN PRN Reason: Insomnia Vit A/Vit C/Vit E/Selen/Cu/Zn/Lutei (Icaps Mv) 2 tab PO DAILY [facility] Discontinued Medications Acetaminophen (Tylenol) 650 mg PO NOW ONE Stop: 11/25/17 13:36 Last Admin: 11/25/17 14:15 Dose: 650 mg Diatrizoate Meglum/Diatrizoate Sod (Gastrografin 37%) 120 ml PO ONETIME ONE Stop: 11/25/17 14:49 Last Admin: 11/25/17 15:47 Dose: 90 ml Furosemide (Lasix) 40 mg IV ASDIRECTED ONE Stop: 11/26/17 14:24 Levofloxacin/Dextrose 750 mg/ (Premix) 150 mls @ 100 mls/hr IV ONETIME ONE Stop: 11/25/17 18:32 Last Admin: 11/25/17 17:17 Dose: 100 mls/hr Piperacillin Sod/Tazobactam (Sod 4.5 gm/ Sodium Chloride) 100 mls @ 200 mls/hr IV ONETIME ONE Stop: 11/25/17 19:59 Last Admin: 11/25/17 21:32 Dose: 200 mls/hr Iopamidol (Isovue-300 (61%)) 100 ml IVPUSH ONETIME ONE Stop: 11/25/17 14:49 Last Admin: 11/25/17 15:47 Dose: 100 ml - Exam Quality Assessment: DVT Prophylaxis General: Alert, Oriented, Cooperative, No Acute Distress HEENT: Pupils Equal, Pupils Reactive, EOMI, Mucous Membr. Moist/[place] Neck: Supple, Trachea Midline, No JVD Lungs: Clear to Auscultation, Normal Respiratory Effort, Decreased Breath Sounds Cardiovascular: Regular Rate, Regular Rhythm GI/Abdominal Exam: Normal Bowel Sounds, Soft, Non-Tender, No Organomegaly, No Distention, No Abnormal Bruit, No Mass, Pelvis Stable (Female) Exam: Deferred Back Exam: Normal Inspection, Full Range of Motion Extremities: Normal Inspection, Normal Range of Motion, Non-Tender, No Pedal Edema, Normal Capillary Refill Peripheral Pulses: 2+: Radial (L), Radial (R), Posterior Tibial (L), Posterior Tibial (R), Dorsalis Pedis (L), Dorsalis Pedis (R) Skin: Warm, Dry, Intact Neurological: No New Focal Deficit Psy/Mental Status: Alert, Normal Affect, Normal Mood - Problem List & Annotations (1) Anemia SNOMED Code(s): 708788437 Code(s): D64.9 - ANEMIA, UNSPECIFIED Status: Acute Priority: High Current Visit: Yes Qualifiers: Anemia type: unspecified type Qualified Code(s): D64.9 - Anemia, unspecified (2) Fever of unknown origin SNOMED Code(s): 5368649 Code(s): R50.9 - FEVER, UNSPECIFIED Status: Acute Priority: High Current Visit: Yes (3) Hypokalemia SNOMED Code(s): 07810138 Code(s): E87.6 - HYPOKALEMIA Status: Resolved Current Visit: Yes (4) Pancreatic cancer SNOMED Code(s): 440621242 Code(s): C25.9 - MALIGNANT NEOPLASM OF PANCREAS, UNSPECIFIED Status: Acute Current Visit: No Qualifiers: Pancreatic malignancy location: unspecified Qualified Code(s): C25.9 - Malignant neoplasm of pancreas, unspecified - Problem List Review Problem List Initiated/Reviewed/Updated: Yes - Plan Plan:: Impression: Febrile post CTX Dehydration Diarrhea History of pancreatic cancer, S/P Whipple procedure (07/2017) Chronic HTN HLD History of PNA History of CVA Plan: IVF Transfuse 2 units PRBCs today Infectious work up - negative thus far, strep pneumo and viral panel pending DVT assessment - negative C. diff ordered due to diarrhea Anemia work-up Droplet isolation Empiric ATB, Levoquin/Zosyn DVT/GI prophylaxis Obs with telemetry Code status: Full code
[2017-11-26] MEDS ORDERED: Sodium Chloride 0.9% 250 ML IV SCH (14:30)
[2017-11-26] MEDS: Multivitamins with Minerals/Folic Acid/Lutein/Zeaxanth Tab PO SCH (15:08)
[2017-11-26] MEDS: Aspirin 81 MG Tab.Chew PO SCH (15:08)
[2017-11-26] MEDS: Multivitamins,Therapeutic Tab PO SCH (15:08)
[2017-11-26] MEDS ORDERED: Levofloxacin/Dextrose 5%-Water 750 MG in Premix Bag 1 BAG IV SCH (17:00)
[2017-11-26] MEDS ORDERED: XELODA 500 MG PO SCH (19:00)
[2017-11-26] MEDS: Piperacillin/Tazobactam 4.5 GM in Dextrose 5% in Water 100 ML IV SCH ×2 (20:37)
[2017-11-26] MEDS: Enoxaparin 40 MG/0.4 ML Syringe SUBCUT SCH (20:49)
[2017-11-27] MEDS: Piperacillin/Tazobactam 4.5 GM in Dextrose 5% in Water 100 ML IV SCH ×4 (03:11→12:44)
[2017-11-27] MEDS: Multivitamins with Minerals/Folic Acid/Lutein/Zeaxanth Tab PO SCH (08:09)
[2017-11-27] MEDS: Aspirin 81 MG Tab.Chew PO SCH (08:09)
[2017-11-27] MEDS: Multivitamins,Therapeutic Tab PO SCH (08:09)
[2017-11-27] MEDS: Potassium Chloride 20 MEQ Tab.ER PO SCH ×2 (08:09→08:20)
[2017-11-27] MEDS: XELODA 500 MG PO SCH ×2 (08:16→09:33)
[2017-11-27] MEDS ORDERED: Hydrochlorothiazide/Triamterene 25-37.5 MG Cap PO SCH (09:00)
[2017-11-27] MEDS ORDERED: Magnesium Sulfate/Water 4 GM in Premix Bag 1 BAG IV ONE (09:31)
--- NOTE | 2017-11-27 11:21 | PCM.DCSUM1 ---
Discharge Summary - Hospital Course Free Text/Narrative:: 82 year old female with PMH of pancreatic cancer, s/p Whipple; receiving CTX as prescribed. Current CTX schedule is once a week. She denies chills however is reported to have had an elevated temp documented at the clinic. She received IVF as scheduled; the patient had brief symptoms including a fever with a sore throat 2-3 days [employer]. Denies headache, change of vision, sore throat , nasal congestion or chest pain. Admits to generalized weakness, and occasional episodes of diarrhea. The care plan was discussed with Dr Guevara, oncologist concrete technician at [facility]. She will be admitted for a fever evaluation ; CTX as prescribed will be continued. - Discharge Data Discharge Date: 11/27/17 Discharge Disposition: Home, Self-Care 01 Condition: Good - Discharge Diagnosis/Problem(s) (1) Anemia SNOMED Code(s): 127340297 ICD Code: D64.9 - ANEMIA, UNSPECIFIED Status: Acute Priority: High Current Visit: Yes Qualifiers: Anemia type: unspecified type Qualified Code(s): D64.9 - Anemia, unspecified (2) Fever of unknown origin SNOMED Code(s): 8441456 ICD Code: R50.9 - FEVER, UNSPECIFIED Status: Acute Priority: High Current Visit: Yes (3) Hypokalemia SNOMED Code(s): 55439063 ICD Code: E87.6 - HYPOKALEMIA Status: Resolved Current Visit: Yes (4) Pancreatic cancer SNOMED Code(s): 917149073 ICD Code: C25.9 - MALIGNANT NEOPLASM OF PANCREAS, UNSPECIFIED Status: Acute Current Visit: No Qualifiers: Pancreatic malignancy location: unspecified Qualified Code(s): C25.9 - Malignant neoplasm of pancreas, unspecified - Patient Summary/Data Consults: Consultations 11/26/17 13:43 Consult to Physical Therapy [PT Evaluation and Treatment] [CONS] Routine 11/26/17 13:44 Consult to Occupational Therapy [OT Evaluation and Treatment] [CONS] Routine - Patient Instructions Diet: Usual Diet as Tolerated Activity: As Tolerated Driving: May Drive Today Showering/Bathing: May Shower Notify Provider of: Fever, Increased Pain, Nausea and/or Vomiting - Discharge Plan Prescriptions/Med Rec: Magnesium Oxide 400 mg PO BID #60 tablet Home Medications: Home Meds Ascorbic Acid [Vitamin C] 500 mg PO DAILY 10/01/17 [History] Aspirin 81 mg PO DAILY 10/01/17 [History] Capecitabine 1,500 mg PO PCBREAKFAST 10/01/17 [History] Cholecalciferol (Vitamin D3) [Vitamin D3] 1,000 units PO DAILY 10/01/17 [History ] Cyanocobalamin/FA/Pyridoxine [Folbic] 2 - 25 mg PO DAILY 10/01/17 [History] Lisinopril 5 mg PO DAILY 10/01/17 [History] Multivitamin [Multivitamins] 1 each PO DAILY 10/01/17 [History] Prochlorperazine Maleate [Compazine] 10 mg PO QID PRN 10/01/17 [History] Triamterene/Hydrochlorothiazid [Dyazide 37.5-25] 25 - 37.5 mg PO DAILY 10/01/17 [History] Vit C/E/Zn/Coppr/Lutein/Zeaxan [Preservision Areds 2 Softgel] 2 tab PO DAILY [History] Capecitabine 1,000 mg PO PCDINNER 11/25/17 [History] Diphenhyd/Lidocaine/MagAl/Manda [First-Mouthwash BLM Susp] 15 ml PO Q6H PRN 11/25 [History] Loperamide [Imodium AD] 2 mg PO ASDIRECTED PRN 11/25/17 [History] Potassium Chloride [Klor-Con] 20 meq PO DAILY 11/25/17 [History] Magnesium Oxide 400 mg PO BID #60 tablet 11/27/17 [Rx] Referrals: Samara Ga MD [Primary Care Provider] - (Please follow-up with your primary care provider for a post-hospital follow-up appointment within 1-2 weeks. ) - Discharge Summary/Plan Comment DC Time >30 min.: No Discharge Summary/Plan Comment: Impression: Febrile post CTX; no sourced identified; received empiric treatment re: URI immune compromised/chemotherapy patient Dehydration-resolved Abnormal electrolytes--resolved Diarrhea-decreased; dogestive enzymes continued History of pancreatic cancer, S/P Whipple procedure (07/2017) Anemia--stable H/H post (2 units) PRBC transfusion Chronic HTN HLD History of PNA History of CVA Plan: Infectious work up - negative; viral panel pending DC isolation DVT assessment - negative C. diff ordered due to diarrhea--negative Anemia work-up, unremarkable Empiric ATB, Levoquin/Zosyn; stopped after 48 hours DVT/GI prophylaxis Obs with telemetry Code status: Full code DC today. Add MgO for low magnesium Additional CC's: Samaar Ga - General Info Date of Service: 11/25/17 Functional Status: Reports: Tolerating Diet, Ambulating, Urinating - Review of Systems General: Reports: No Symptoms HEENT: Reports: No Symptoms Pulmonary: Reports: No Symptoms Cardiovascular: Reports: No Symptoms Gastrointestinal: Reports: No Symptoms Genitourinary: Reports: No Symptoms Musculoskeletal: Reports: No Symptoms Skin: Reports: No Symptoms Neurological: Reports: No Symptoms Psychiatric: Reports: No Symptoms - Patient Data Vitals - Most Recent: Last Vital Signs Temp 36.8 C 11/27/17 03:04 Pulse 78 11/27/17 03:04 Resp 16 11/27/17 03:04 BP 116/44 L 11/27/17 03:04 Pulse Ox 95 11/27/17 03:04 Weight - Most Recent: 55.021 kg I&O - Last 24 hours: Intake & Output 11/26/17 11/27/17 11/27/17 22:59 06:59 14:59 Intake Total 2931 600 Output Total 2300 Balance 2931 -1700 Lab Results - Last 24 hrs: Laboratory Results - last 24 hr 11/26/17 11/27/17 11/27/17 Range/Units 05:04 05:54 05:54 WBC 6.09 (3.98-10.04) K/mm3 RBC 3.57 L (3.98-5.22) M/mm3 Hgb 11.0 L (11.2-15.7) gm/L Hct 31.7 L (34.1-44.9) % MCV 88.8 (79.4-94.8) fl MCH 30.8 (25.6-32.2) pg MCHC 34.7 (32.2-35.5) g/dl RDW Std Deviation 60.7 H (36.4-46.3) fL Plt Count 201 (182-369) K/mm3 MPV 9.6 (9.4-12.3) fl Neut % (Auto) 69.4 (34.0-71.1) % Lymph % (Auto) 24.1 (19.3-51.7) % Kaufman % (Auto) 2.1 L (4.7-12.5) % Eos % (Auto) 4.1 (0.7-5.8) Baso % (Auto) 0.3 (0.1-1.2) % Neut # (Auto) 4.22 (1.56-6.13) K/mm3 Lymph # (Auto) 1.47 (1.18-3.74) K/mm3 Kaufman # (Auto) 0.13 L (0.24-0.36) K/mm3 Eos # (Auto) 0.25 (0.04-0.36) K/mm3 Baso # (Auto) 0.02 (0.01-0.08) K/mm3 Sodium 139 (136-145) mEq/L Potassium 4.2 (3.5-5.1) mEq/L Chloride 105 (98-107) mEq/L Carbon Dioxide 27 (21-32) mEq/L Anion Gap 11.2 (5-15) BUN 11 (7-18) mg/dL Creatinine 0.9 (0.55-1.02) mg/dL Est Cr Clr Drug Dosing 35.11 mL/min Estimated GFR (MDRD) 60 (>60) mL/min BUN/Creatinine Ratio 12.2 L (14-18) Glucose 110 (83-115) mg/dL Lactic Acid (0.4-2.0) mmol/L Calcium 8.4 L (8.5-10.1) mg/dL Magnesium (1.8-2.4) mg/dl Iron (50-170) ug/dL TIBC (100-400) ug/dL % Saturation (20-55) % Transferrin (202-364) mg/dL C-Reactive Protein 4.5 H* (<1.0) mg/dL Vitamin B12 (193-986) pg/ml Folate (8.6-58.9) ng/mL Blood Type O POSITIVE Gel Antibody Screen Negative Crossmatch See Detail 11/27/17 11/27/17 11/27/17 Range/Units 05:54 05:54 05:54 WBC (3.98-10.04) K/mm3 RBC (3.98-5.22) M/mm3 Hgb (11.2-15.7) gm/L Hct (34.1-44.9) % MCV (79.4-94.8) fl MCH (25.6-32.2) pg MCHC (32.2-35.5) g/dl RDW Std Deviation (36.4-46.3) fL Plt Count (182-369) K/mm3 MPV (9.4-12.3) fl Neut % (Auto) (34.0-71.1) % Lymph % (Auto) (19.3-51.7) % Kaufman % (Auto) (4.7-12.5) % Eos % (Auto) (0.7-5.8) Baso % (Auto) (0.1-1.2) % Neut # (Auto) (1.56-6.13) K/mm3 Lymph # (Auto) (1.18-3.74) K/mm3 Kaufman # (Auto) (0.24-0.36) K/mm3 Eos # (Auto) (0.04-0.36) K/mm3 Baso # (Auto) (0.01-0.08) K/mm3 Sodium (136-145) mEq/L Potassium (3.5-5.1) mEq/L Chloride (98-107) mEq/L Carbon Dioxide (21-32) mEq/L Anion Gap (5-15) BUN (7-18) mg/dL Creatinine (0.55-1.02) mg/dL Est Cr Clr Drug Dosing mL/min Estimated GFR (MDRD) (>60) mL/min BUN/Creatinine Ratio (14-18) Glucose (83-115) mg/dL Lactic Acid 0.6 (0.4-2.0) mmol/L Calcium (8.5-10.1) mg/dL Magnesium 1.3 L (1.8-2.4) mg/dl Iron 58 (50-170) ug/dL TIBC 180 (100-400) ug/dL % Saturation 32 (20-55) % Transferrin 144 L (202-364) mg/dL C-Reactive Protein (<1.0) mg/dL Vitamin B12 1599 H (193-986) pg/ml Folate 50.8 (8.6-58.9) ng/mL Blood Type Gel Antibody Screen Crossmatch Med Orders - Current: Current Medications Acetaminophen (Tylenol) 650 mg PO Q6H PRN PRN Reason: Pain/Fever Aspirin (Aspirin) 81 mg PO DAILY [facility] Last Admin: 11/27/17 08:09 Dose: 81 mg Diphenhydr/Magaldrate/Simeth/Lidoca (First-Mouthwash Blm Susp) 15 ml PO Q6H PRN PRN Reason: Pain Enoxaparin Sodium (Lovenox) 40 mg SUBCUT BEDTIME [facility] Last Admin: 11/26/17 20:49 Dose: 40 mg Hydralazine HCl (Apresoline) 20 mg IVPUSH Q6H PRN PRN Reason: Hypertension Levofloxacin/Dextrose 750 mg/ (Premix) 150 mls @ 100 mls/hr IV Q48H [facility] Piperacillin Sod/Tazobactam (Sod 4.5 gm/ Dextrose/Water) 100 mls @ 25 mls/hr IV Q8H [facility] Last Admin: 11/27/17 03:11 Dose: 25 mls/hr Sodium Chloride (Normal Saline) 250 mls @ 125 mls/hr IV ASDIRECTED [facility] Magnesium Sulfate 4 gm/ Premix 100 mls @ 25 mls/hr IV ONETIME ONE Stop: 11/27/17 13:30 Last Admin: 11/27/17 09:53 Dose: 25 mls/hr Loperamide HCl (Imodium) 2 mg PO ASDIRECTED PRN PRN Reason: Diarrhea Magnesium Oxide (Magnesium Oxide) 400 mg PO BID [facility] Multivitamins (Thera) 1 each PO DAILY [facility] Last Admin: 11/27/17 08:09 Dose: 1 each Ondansetron HCl (Zofran) 4 mg IVPUSH Q8H PRN PRN Reason: Nausea/Vomiting Xeloda [Capecitabine (] 500 Mg Tab) 0 each PO PCBREAKFAST [facility] Last Admin: 11/27/17 09:33 Dose: Not Given Xeloda [Capecitabine (] 500 Mg Tab) 0 each PO PCDINNER [facility] Last Admin: 11/26/17 18:33 Dose: 1,000 each Prochlorperazine Maleate (Compazine) 10 mg PO QID PRN PRN Reason: Nausea Temazepam (Restoril) 7.5 mg PO BEDTIME PRN PRN Reason: Insomnia Triamterene/HCTZ (Dyazide 25-37.5 Mg) 1 each PO DAILY [facility] Last Admin: 11/27/17 08:09 Dose: 1 each Vit A/Vit C/Vit E/Selen/Cu/Zn/Lutei (Icaps Mv) 2 tab PO DAILY [facility] Last Admin: 11/27/17 08:09 Dose: 2 tab Discontinued Medications Acetaminophen (Tylenol) 650 mg PO NOW ONE Stop: 11/25/17 13:36 Last Admin: 11/25/17 14:15 Dose: 650 mg Diatrizoate Meglum/Diatrizoate Sod (Gastrografin 37%) 120 ml PO ONETIME ONE Stop: 11/25/17 14:49 Last Admin: 11/25/17 15:47 Dose: 90 ml Furosemide (Lasix) 40 mg IV ASDIRECTED ONE Stop: 11/26/17 14:24 Last Admin: 11/26/17 18:47 Dose: 40 mg Sodium Chloride (Normal Saline) 1,000 mls @ 125 mls/hr IV ASDIRECTED [facility] Last Admin: 11/26/17 11:34 Dose: 75 mls/hr Levofloxacin/Dextrose 750 mg/ (Premix) 150 mls @ 100 mls/hr IV ONETIME ONE Stop: 11/25/17 18:32 Last Admin: 11/25/17 17:17 Dose: 100 mls/hr Piperacillin Sod/Tazobactam (Sod 4.5 gm/ Sodium Chloride) 100 mls @ 200 mls/hr IV ONETIME ONE Stop: 11/25/17 19:59 Last Admin: 11/25/17 21:32 Dose: 200 mls/hr Piperacillin Sod/Tazobactam (Sod 4.5 gm/ Sodium Chloride) 100 mls @ 25 mls/hr IV Q8H [facility] Stop: 11/26/17 16:30 Last Admin: 11/26/17 11:34 Dose: 25 mls/hr Iopamidol (Isovue-300 (61%)) 100 ml IVPUSH ONETIME ONE Stop: 11/25/17 14:49 Last Admin: 11/25/17 15:47 Dose: 100 ml Capecitabine [Xeloda (] 500 Mg) 0 each PO BID [facility] Last Admin: 11/26/17 15:24 Dose: 1,500 each Digestive 8/L. Acidoph/Pectin [ Digestive Enzymes Tablet] 0 each PO TID [facility] Last Admin: 11/26/17 15:24 Dose: Not Given Potassium Chloride (Klor-Con M20) 40 meq PO BID [facility] Last Admin: 11/27/17 08:20 Dose: Not Given - Exam Quality Assessment: Reports: DVT Prophylaxis General: Reports: Alert, Oriented, Cooperative, No Acute Distress HEENT: Reports: Pupils Equal, Pupils Reactive, EOMI Neck: Reports: Supple, Trachea Midline Lungs: Reports: Clear to Auscultation, Normal Respiratory Effort Cardiovascular: Reports: Regular Rate, Regular Rhythm GI/Abdominal Exam: Normal Bowel Sounds, Soft, Non-Tender, No Organomegaly, No Distention (Female) Exam: Deferred Rectal (Female) Exam: Deferred Back Exam: Reports: Normal Inspection Extremities: Normal Inspection, Non-Tender, No Pedal Edema, Normal Capillary Refill Skin: Reports: Warm Neurological: Reports: No New Focal Deficit, Normal Gait, Normal Speech Psy/Mental Status: Reports: Alert, Normal Affect, Normal Mood *Q Meaningful Use (DIS) - VTE *Q VTE Criteria *Q: - Stroke *Q Stroke Criteria *Q: - AMI *Q AMI Criteria *Q:
[2017-11-27 12:06] VITALS: BP 125/65
[2017-11-27] MEDS ORDERED: Levofloxacin/Dextrose 5%-Water 750 MG in Premix Bag 1 BAG IV SCH (17:00)
[2017-11-27] MEDS ORDERED: Magnesium Oxide 400 MG Tab PO SCH (21:00)
== END 2017-11-27 14:00 | disposition home or self-care (01) ==
LOC: JD.ED 12:16 → JD.MS 18:31
PROVIDERS: ADMIT Internal Medicine Cardiovascular Disease; ATTEND Internal Medicine Cardiovascular Disease
DX: R50.2 Drug induced fever (principal); D64.9 Anemia, unspecified; T45.1X5A Adverse effect of antineoplastic and immunosuppressive drugs, initial encounter; C25.9 Malignant neoplasm of pancreas, unspecified; E87.6 Hypokalemia; E86.0 Dehydration; R19.7 Diarrhea, unspecified; E78.5 Hyperlipidemia, unspecified; I10 Essential (primary) hypertension; Z86.73 Personal history of transient ischemic attack (TIA), and cerebral infarction without residual deficits; Z85.07 Personal history of malignant neoplasm of pancreas; Z79.899 Other long term (current) drug therapy; Z79.82 Long term (current) use of aspirin; Z98.890 Other specified postprocedural states
CPT/HCPCS: 36415; 36430; 71046; 71046-26; 74019; 74019-26; 74177; 74177-26; 80048; 80053; 81001; 82607; 82746; 83540; 83605; 83735; 84443; 84466; 85025; 85610; 85730; 86140; 86738; 86850; 86900; 86901; 86922; 87040; 87081; 87086; 87430; 87486; 87581; 87633; 87798; 87804; 87899; 93970; 93970-26; 96361; 96365; 96366; 96367; 96372; 96375; 97161-GP; 97165-GO; 99217; 99219; 99225; 99285; 99285-25; A9270-GY; G0378; J1642; J1650; J1940; J1956; J2543; J3475; J7030; J7040; J7060; P9016; Q9963; Q9967

== ENCOUNTER 2018-01-20 10:11 | Emergency (ER) | payer MEDICARE, OTHER ==
[2018-01-20 10:19] VITALS: BP 187/76
[2018-01-20] MEDS ORDERED: Ondansetron 4 MG/2 ML SDV IVPUSH ONE (10:53)
[2018-01-20] MEDS ORDERED: Sodium Chloride 0.9% 10 ML Syringe FLUSH PRN (10:53)
[2018-01-20] MEDS ORDERED: Ketorolac 15 MG/ML SDV IVPUSH ONE (10:55)
[2018-01-20] MEDS ORDERED: HYDROmorphone 0.5 MG/0.5 ML SYRINGE IVPUSH ONE (10:55)
[2018-01-20] MEDS ORDERED: Sodium Chloride 0.9% 1,000 ML IV SCH (11:00)
--- NOTE | 2018-01-20 11:35 | CT ---
CT abdomen and pelvis Technique: Multiple axial sections were obtained from above the dome of the diaphragm inferiorly through the pubic symphysis. Intravenous and oral contrast not given. Study has been performed as a ureteral stone protocol. Comparison: Prior CT abdomen and pelvis exam of 11/25/17 and 04/19/17. Findings: Tubular structure is seen abutting the upper pole of the left kidney extending into the pelvis. 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 Kidneys show no abnormal calcifications. Other ureters show no abnormal calcifications or dilatation. Visualized lung bases show slight areas of parenchymal scarring. Subpleural nodule is noted within the left base measuring 6 mm. This nodule is not seen on prior CT exam of 04/19/17 and this area was obscured because a pleural effusion on prior study. Diffuse fatty infiltration is seen throughout the liver. There is intrahepatic biliary being seen which is a stable finding from previous study. Cholecystectomy is noted. Adrenal glands show no nodule. Head of the pancreas is not seen with surgical clips in this area. Body and tail of the pancreas are atrophied Spleen appears within normal limits. Aorta shows atherosclerotic change without aneurysm. Slightly prominent retroperitoneal lymph nodes are seen which are stable from previous exam. No mesenteric abnormalities are seen. Surgical clips are seen within the midabdomen. No pelvic mass or adenopathy is seen. No bowel dilatation is seen. Scattered degenerative change is noted within the spine. Appendix is seen is felt to be within normal limits in size. Impression: 1. Tubular structure abutting upper pole left kidney extending into the pelvis. 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 2. Other ureters show no dilatation or ureteral stone. Kidneys show no abnormal calcifications. 3. Diffuse fatty infiltration within the liver. Intrahepatic biliary air is seen which is stable from prior CT exams. 4. Subpleural nodule within left lung base which is most likely due to small area of interval scarring or atelectasis. 5. Other incidental notes as described above. Diagnostic code #3
--- NOTE | 2018-01-20 12:35 | CT ---
CT lumbar spine Technique: Multiple axial sections were obtained from above T11 through the L5-S1 disc. Reconstructed sagittal and coronal images were reviewed. Comparison: No prior lumbar spine imaging. Findings: Posterior disc space narrowing noted at L1-L2 through L3-L4. Mild diffuse narrowing seen at the L4-L5 disc and severe disc space narrowing noted within the L5-S1 disc with vacuum phenomena. Circumferential disc bulging is seen at L2-3 through L4-L5 with posterior disc maintaining a mostly planar margin. No neural foraminal stenosis is seen within the nerve roots exit. Mild central canal stenosis is noted at L4-L5. Scattered endplate osteophytes are seen throughout the lumbar thoracic spine. No osteoblastic or osteolytic change is seen. No fracture is noted. Mild degenerative change is seen within the L4-L5 apophyseal joints. Impression: 1. Diffuse degenerative change as noted above. Nothing acute is seen. Diagnostic code #2
--- NOTE | 2018-01-20 12:52 | EDM.PDOC ---
ED HPI GENERAL MEDICAL PROBLEM - General Chief Complaint: Back Pain or Injury Stated Complaint: BACK PAIN Time Seen by Provider: 01/20/18 10:47 Source of Information: Reports: Patient, Family History Limitations: Reports: No Limitations - History of Present Illness INITIAL COMMENTS - FREE TEXT/NARRATIVE: The patient presents with right flank to right lower back pain. This started a couple days ago. She did not injure her back. She did not fall, lift, or twist. She has no pain running down her leg. She has no hematuria or dysuria and no history of kidney stones. She has never had trouble with her back before. She has no numbness or weakness. She has no bowel or bladder problems. She was diagnosed with pancreatic cancer over a year ago and she had a Whipple procedure and she has been on chemo. Her chemo was done last week. She is scheduled to have a PET scan on the . She went to the clinic. They accessed her port and felt she needed more of a work up so they sent her over here. She has no fever, chills, cough, chest pain, shortness of breath, abdominal pain. She did have some nausea. Onset: Gradual Duration: Day(s): (2) Location: Reports: Back (Right flank and right lower back) Quality: Reports: Sharp Severity: Severe Improves with: Reports: None Worsens with: Reports: None Context: Denies: Trauma Associated Symptoms: Reports: No Other Symptoms Treatments ICU MANAGER: Reports: Other (see below) Other Treatments ICU MANAGER: port a cath accessed by clinic lower right back Pain Score (Numeric/FACES): 10 - Related Data Allergies Allergy/AdvReac Type Severity Reaction Status Date / Time No Known Allergies Allergy Verified 01/20/18 10:19 Home Meds: Home Meds Ascorbic Acid [Vitamin C] 500 mg PO DAILY 10/01/17 [History] Aspirin 81 mg PO DAILY 10/01/17 [History] Cholecalciferol (Vitamin D3) [Vitamin D3] 1,000 units PO DAILY 10/01/17 [History ] Cyanocobalamin/FA/Pyridoxine [Folbic] 2 - 25 mg PO DAILY 10/01/17 [History] Multivitamin [Multivitamins] 1 each PO DAILY 10/01/17 [History] Prochlorperazine Maleate [Compazine] 10 mg PO QID PRN 10/01/17 [History] Triamterene/Hydrochlorothiazid [Dyazide 37.5-25] 25 - 37.5 mg PO DAILY 10/01/17 [History] Vit C/E/Zn/Coppr/Lutein/Zeaxan [Preservision Areds 2 Softgel] 2 tab PO DAILY [History] Capecitabine 1,000 mg PO BID 11/25/17 [History] Diphenhyd/Lidocaine/MagAl/Manda [First-Mouthwash BLM Susp] 15 ml PO Q6H PRN 11/25 [History] Loperamide [Imodium AD] 2 mg PO ASDIRECTED PRN 11/25/17 [History] Potassium Chloride [Klor-Con] 10 meq PO DAILY 11/25/17 [History] Magnesium Oxide 400 mg PO BID #60 tablet 11/27/17 [Rx] Darlene/Cell/Lipas/Malt/Prt/Lac/in [Digestive Enzymes] 1 each PO TID 01/20/18 [ History] Cyclobenzaprine [Flexeril] 5 mg PO BID PRN #10 tab 01/20/18 [Rx] LORazepam 1 mg PO ASDIRECTED PRN 01/20/18 [History] Lidocaine 5% 1 dose TOP ASDIRECTED PRN 01/20/18 [History] Past Medical History HEENT History: Reports: Cataract, Impaired Vision Other HEENT History: wears eyeglasses Cardiovascular History: Reports: High Cholesterol, Hypertension Respiratory History: Reports: Pneumonia, Recurrent Gastrointestinal History: Reports: Other (See Below) Other Gastrointestinal History: pancreatic [place] [employer] C[employer]GIVER History: Reports: Musculoskeletal History: Reports: Back Pain, Chronic, Fracture, Neck Pain, Chronic Other Musculoskeletal History: foot Neurological History: Reports: CVA Other Neuro History: 2006- slight right sided weakness not resolved Oncologic (Cancer) History: Reports: Pancreatic Other Oncologic History: currently completed chemotherapy for pancreatic cancer - Infectious Disease History Infectious Disease History: Reports: Chicken Pox - Past Surgical History HEENT Surgical History: Reports: Cataract Surgery GI Surgical History: Reports: Cholecystectomy, Other (See Below) Other GI Surgeries/Procedures: WHIPPLE procedure Jul 2017 Female Surgical History: Reports: Hysterectomy Social & Family History - Family History Family Medical History: Noncontributory - Tobacco Use Smoking Status *Q: Never Smoker - Caffeine Use Caffeine Use: Reports: Coffee - Recreational Drug Use Recreational Drug Use: No ED ROS GENERAL - Review of Systems Review Of Systems: See Below Constitutional: Reports: No Symptoms HEENT: Reports: No Symptoms Respiratory: Reports: No Symptoms Cardiovascular: Reports: No Symptoms Endocrine: Reports: No Symptoms GI/Abdominal: Reports: No Symptoms : Reports: No Symptoms Musculoskeletal: Reports: Back Pain ED EXAM,LOWER BACK PAIN/INJURY - Physical Exam Exam: See Below Exam Limited By: No Limitations General Appearance: Alert, No Apparent Distress Ears: Normal External Exam Nose: Normal Inspection Throat/Mouth: Normal Inspection Head: Atraumatic, Normocephalic Neck: Normal Inspection Respiratory/Chest: No Respiratory Distress, Lungs Clear, Normal Breath Sounds Cardiovascular: Regular Rate, Rhythm, No Edema, No Murmur GI/Abdominal: Soft, Non-Tender, No Organomegaly, No Mass Back Exam: Other (No pain upon palpation to the low back) Extremities: Normal Inspection Neurological: Alert, No Motor/Sensory Deficits, Oriented x 3 Course - Vital Signs Last Recorded V/S: Last Vital Signs Temp 97.4 F 01/20/18 10:16 Pulse 67 01/20/18 10:16 Resp 18 01/20/18 10:16 BP 187/76 H 01/20/18 10:16 Pulse Ox 99 01/20/18 10:16 - Orders/Labs/Meds Orders: Active Orders 24 hr Category Date Time Status Peripheral IV Care [RC] . DIRECTED Care 01/20/18 10:54 Active UA W/MICROSCOPIC [URIN] Stat Lab 01/20/18 10:30 Ordered Sodium Chloride 0.9% [Normal Saline] 1,000 ml Med 01/20/18 11:00 Active IV ASDIRECTED Sodium Chloride 0.9% [Saline Flush] Med 01/20/18 10:53 Active 10 ml FLUSH ASDIRECTED PRN ED Antiemetic Medication Reflex [OM.PC] Stat Oth 01/20/18 10:53 Ordered Peripheral IV Insertion Adult [OM.PC] Stat Oth 01/20/18 10:53 Ordered Medication Orders Sodium Chloride (Normal Saline) 1,000 mls @ 125 mls/hr IV ASDIRECTED LAURENCE Last Admin: 01/20/18 11:09 Dose: 125 mls/hr Sodium Chloride (Saline Flush) 10 ml FLUSH ASDIRECTED PRN PRN Reason: Keep Vein Open Last Admin: 01/20/18 11:10 Dose: 10 ml Labs: Laboratory Tests 01/20/18 01/20/18 01/20/18 Range/Units 10:30 11:00 11:00 WBC 5.23 (3.98-10.04) K/mm3 RBC 3.46 L (3.98-5.22) M/mm3 Hgb 11.7 (11.2-15.7) gm/L Hct 33.9 L (34.1-44.9) % MCV 98.0 H (79.4-94.8) fl MCH 33.8 H (25.6-32.2) pg MCHC 34.5 (32.2-35.5) g/dl RDW Std Deviation 59.4 H (36.4-46.3) fL Plt Count 235 (182-369) K/mm3 MPV 9.3 L (9.4-12.3) fl Neut % (Auto) 42.4 (34.0-71.1) % Lymph % (Auto) 39.0 (19.3-51.7) % [place] % (Auto) 15.3 H (4.7-12.5) % Eos % (Auto) 2.5 (0.7-5.8) Baso % (Auto) 0.4 (0.1-1.2) % Neut # (Auto) 2.22 (1.56-6.13) K/mm3 Lymph # (Auto) 2.04 (1.18-3.74) K/mm3 [place] # (Auto) 0.80 H (0.24-0.36) K/mm3 Eos # (Auto) 0.13 (0.04-0.36) K/mm3 Baso # (Auto) 0.02 (0.01-0.08) K/mm3 Manual Slide Review Normal smear Sodium 137 (136-145) mEq/L Potassium 3.2 L (3.5-5.1) mEq/L Chloride 101 (98-107) mEq/L Carbon Dioxide 26 (21-32) mEq/L Anion Gap 13.2 (5-15) BUN 13 (7-18) mg/dL Creatinine 0.8 (0.55-1.02) mg/dL Est Cr Clr Drug Dosing 41.40 mL/min Estimated GFR (MDRD) > 60 (>60) mL/min BUN/Creatinine Ratio 16.3 (14-18) Glucose 101 (83-115) mg/dL Calcium 9.4 (8.5-10.1) mg/dL Total Bilirubin 0.9 (0.2-1.0) mg/dL AST 37 (15-37) U/L ALT 41 (14-59) U/L Alkaline Phosphatase 145 H (46-116) U/L Total Protein 6.2 L (6.4-8.2) g/dl Albumin 3.6 (3.4-5.0) g/dl Globulin 2.6 gm/dL Albumin/Globulin Ratio 1.4 (1-2) Lipase 43 L (73-393) U/L Urine Color Yellow (Yellow) Urine Appearance Clear (Clear) Urine pH 7.0 (5.0-8.0) Ur Specific [place] 1.015 (1.005-1.030) Urine Protein Negative (Negative) Urine Glucose (UA) Negative (Negative) Urine Ketones Negative (Negative) Urine Occult Blood Negative (Negative) Urine Nitrite Negative (Negative) Urine Bilirubin Negative (Negative) Urine Urobilinogen 0.2 (0.2-1.0) Ur Leukocyte Esterase Negative (Negative) Urine RBC Not seen (0-5) /hpf Urine WBC 0-5 (0-5) /hpf Ur Epithelial Cells 0-5 (0-5) /hpf Urine Bacteria Few (FEW) /hpf Urine Mucus Not seen (FEW) /hpf Meds: Medications Generic Name Dose Route Start Last Admin Trade Name Freq PRN Reason Stop Dose Admin Sodium Chloride 1,000 mls @ 125 mls/hr 01/20/18 11:00 01/20/18 11:09 Normal Saline IV 125 mls/hr ASDIRECTED LAURENCE Administration Sodium Chloride 10 ml 01/20/18 10:53 01/20/18 11:10 Saline Flush FLUSH 10 ml ASDIRECTED PRN Administration Keep Vein Open Discontinued Medications Generic Name Dose Route Start Last Admin Trade Name Freq PRN Reason Stop Dose Admin Hydromorphone HCl 0.25 mg 01/20/18 10:55 01/20/18 11:11 Dilaudid IVPUSH 01/20/18 10:56 0.25 mg ONETIME ONE Administration Ketorolac Tromethamine 15 mg 01/20/18 10:55 01/20/18 11:09 Toradol IVPUSH 01/20/18 10:56 15 mg ONETIME ONE Administration Ondansetron HCl 4 mg 01/20/18 10:53 01/20/18 11:09 Zofran IVPUSH 01/20/18 10:54 4 mg ONETIME ONE Administration - Re-Assessments/Exams Free Text/Narrative Re-Assessment/Exam: 01/20/18 12:53 I ordered an toradol 15mg IV, dilaudid 0.25mg IV, labs, UA and a CT of her abdomen and pelvis without contrast and a CT of her lumbar spine. Her CBC looks good. Her K was a little low at 3.2. Her alk phos was slightly elevated at 145. Her lipase was low at 43. Her UA shows no UTI or blood. Her CT of her lumbar spine shows diffuse degenerative change but nothing acute is seen. The CT of her abdomen and pelvis shows tubular structure abutting upper pole left kidney extending into the pelvis. 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 Other ureters show no dilatation or ureteral stone. Kidneys show no abnormal calcifications. Diffuse fatty infiltration within the liver. Intrahepatic biliary air is seen which is stable from prior CT exams. Subpleural nodule within left lung base which is most likely due to small area of interval scarring or atelectasis. 01/20/18 13:10 She feels better. I will get her on a xanaflex. Departure - Departure Time of Disposition: 13:10 Disposition: Home, Self-Care 01 Condition: Good Clinical Impression: Low back pain Qualifiers: Chronicity: acute Back pain laterality: right Sciatica presence: without sciatica Qualified Code(s): M54.5 - Low back pain - Discharge Information Prescriptions: Cyclobenzaprine [Flexeril] 5 mg PO BID PRN #10 tab PRN Reason: Pain Referrals: Samara Ga MD [Primary Care Provider] - 1 Week Forms: ED Department Discharge Additional Instructions: Take motrin or aleve for pain. If that is not helping you can try some flexeril 2 times per day. Follow up with your doctor. Please return if you are worse. - My Orders Last 24 Hours: My Active Orders 01/20/18 10:30 UA W/MICROSCOPIC [URIN] Stat 01/20/18 10:53 Sodium Chloride 0.9% [Saline Flush] 10 ml FLUSH ASDIRECTED PRN ED Antiemetic Medication Reflex [OM.PC] Stat Peripheral IV Insertion Adult [OM.PC] Stat 01/20/18 10:54 Peripheral IV Care [RC] . DIRECTED 01/20/18 11:00 Sodium Chloride 0.9% [Normal Saline] 1,000 ml IV ASDIRECTED - Assessment/Plan Last 24 Hours: My Active Orders 01/20/18 10:30 UA W/MICROSCOPIC [URIN] Stat 01/20/18 10:53 Sodium Chloride 0.9% [Saline Flush] 10 ml FLUSH ASDIRECTED PRN ED Antiemetic Medication Reflex [OM.PC] Stat Peripheral IV Insertion Adult [OM.PC] Stat 01/20/18 10:54 Peripheral IV Care [RC] . DIRECTED 01/20/18 11:00 Sodium Chloride 0.9% [Normal Saline] 1,000 ml IV ASDIRECTED
== END 2018-01-20 13:31 | disposition home or self-care (01) ==
LOC: JD.ED 10:11
DX: M54.5 Low back pain (principal); I10 Essential (primary) hypertension; Z79.899 Other long term (current) drug therapy; Z79.82 Long term (current) use of aspirin
CPT/HCPCS: 36415; 72131; 74176; 80053; 81001; 83690; 85025; 96361; 96374; 96375; 99284; J1170; J1642; J1885; J2405; J7040; J7050; 99283